=== PATIENT | male | born 1950 | race Caucasian/White ===

== ENCOUNTER 2017-04-18 14:28 | Inpatient (IN) ==
[2017-04-18] MEDS ORDERED: Acetaminophen 650 MG RECTAL SUPP RC ONE (14:39)
--- NOTE | 2017-04-18 14:45 | Emergency Department Note ---
Disposition Clinical Impression: Urinary retention, Confusion UTI (urinary tract infection) Qualifiers: Urinary tract infection type: acute cystitis Hematuria presence: without hematuria Qualified Code(s): N30.00 - Acute cystitis without hematuria Fever Qualifiers: Fever type: unspecified Qualified Code(s): R50.9 - Fever, unspecified Disposition: Admitted As Inpatient Condition: Fair Referrals: Andreea Hawley, RADIO ENGINEERING TEACHER [Primary Care Provider] - Forms: ED Satisfaction Letter Time of Disposition: 15:26 Altered Mental Status HPI - General Chief Complaint: ED Altered Mental Status Stated Complaint: AMS Time Seen by Provider: 04/18/17 14:34 Source: patient, EMS Mode of arrival: EMS Limitations: altered mental status Nursing Notes Reviewed: Yes Vital Signs Reviewed: Yes - History of Present Illness HPI Narrative: 67-year-old who arrives with altered mental status. Dominguez states that they found him sitting in a chair that he sits in every day doesn't get up to go the bathroom doesn't move. He's had increasing altered mental status family states it's usually an infection that causes this. Dominguez states that he lost his bladder when they stood him up and was very foul-smelling. On arrival here he is awake and we cannot get in to talk. Last known well according to dominguez is unknown. The patient is not able to provide any additional information they say families underway and. MD complaint: altered mental status Onset (ago): unknown Pain Severity: unable (To quantify) Consistency of Symptoms: getting worse Context: history of similar presentation (If infection) Associated symptoms: Reports: difficulty walking, incontinence - Related Data Home Medications Medication Instructions Recorded Confirmed Atorvastatin [Lipitor] 20 mg PO HS 04/30/16 04/30/16 BuPROPion [Wellbutrin] 100 mg PO HS 04/30/16 04/30/16 BuPROPion [Wellbutrin] 200 mg PO QIANA 04/30/16 04/30/16 Chloraseptic [place] [Chloraseptic] 1 spray MM QID 04/30/16 04/30/16 Digoxin [Lanoxin] 0.25 mg PO DAILY 04/30/16 04/30/16 Ergocalciferol (VITAMIN D2) 50,000 unit PO MO 04/30/16 04/30/16 [Vitamin D2] Gabapentin [Neurontin] 1,200 mg PO Q12HR 04/30/16 04/30/16 HYDROmorphone [Dilaudid] 2 mg PO Q3H PRN 04/30/16 04/30/16 HydrOXYzine 50 mg PO BID 04/30/16 04/30/16 Magic Mouthwash [Magic Mouthwash 10 ml PO QID PRN 04/30/16 04/30/16 BLM] Magnesium Oxide [Mag-Ox] 400 mg PO DAILY 04/30/16 04/30/16 Nystatin Cream [Mycostatin Cream] 1 / TP TID 04/30/16 04/30/16 Ondansetron [Zofran ODT] 8 mg SL Q8HR PRN 04/30/16 04/30/16 OxyCODONE Immed Rel [Roxicodone 15 15 mg PO Q4HR PRN 04/30/16 04/30/16 MG] Polyethylene Glycol 3350 [MiraLAX] 17 gm PO DAILY 04/30/16 04/30/16 Prochlorperazine Maleate 10 mg PO Q6HR 04/30/16 04/30/16 [Compazine] Rivaroxaban [Xarelto] 20 mg PO DAILY 04/30/16 04/30/16 Sennosides [Senna] 8.6 mg PO DAILY 04/30/16 04/30/16 Silver Sulfadiazine [Silvadene] 1 appl TP BID 04/30/16 04/30/16 Sodium Fluoride 1 ml 04/30/16 04/30/16 clonazePAM [Klonopin] 2 mg PO QID 04/30/16 04/30/16 metFORMIN [Glucophage] 1,000 mg PO BIDWM 04/30/16 04/30/16 traMADol [Ultram] 50 mg PO Q12HR PRN 04/30/16 04/30/16 Allergies Allergy/AdvReac Type Severity Reaction Status Date / Time No Known Allergies Allergy Unverified 01/01/16 08:26 All systems ED: reviewed and negative except as stated. Constitutional: Reports: fever. Denies: chills, weakness, weight change Eyes: Denies: eye pain, eye discharge, vision change ENT ED: Denies: ear pain, throat pain, dental pain, hearing loss, epistaxis, congestion, dysphagia Cardiovascular: Denies: chest pain, palpitations, dyspnea on exertion, edema, syncope Respiratory: Denies: cough, dyspnea, wheezes, hemoptysis, stridor Gastrointestinal: Denies: abdominal pain, nausea, vomiting, diarrhea, constipation, hematemesis, melena, hematochezia Genitourinary: Denies: urgency, dysuria, frequency, hematuria Musculoskeletal: Denies: back pain, neck pain, arthralgia, myalgia Integumentary: Denies: rash, abrasion, lesions Neurological: Reports: weakness (Lysed), confusion, other (All not speak). Denies: numbness, paresthesias, abnormal gait, vertigo Psychiatric: Denies: anxiety, depression, suicidal thoughts, homicidal thoughts , auditory hallucinations, visual hallucinations Endocrine: Reports: fatigue Hematological/Lymphatic: Denies: easy bleeding, easy bruising Allergic/Immunologic: Denies: facial swelling, urticaria Past Medical History - Past Medical History Medical history: Reports: atrial fibrillation, cancer (Patient has also has morbid obesity), diabetes, venous stasis - Social History Smoking Status: Former smoker Alcohol use: Reports: none Physical Exam - General Limitations: altered mental status General appearance: other (Awake and can get him to follow some instructions.) - Head Head exam: atraumatic, normocephalic, normal inspection - Eye Eye exam: Present: normal appearance, PERRL, EOMI - ENT ENT exam: normal exam, normal oropharynx, mucous membranes moist - Neck Neck exam: Present: normal inspection, full ROM, trachea midline - Chest Chest inspection: Present: normal inspection, symmetric chest wall rise - Respiratory Respiratory exam: Present: normal lung sounds bilaterally - Cardiovascular Cardiovascular exam: Present: regular rate, normal rhythm, normal heart sounds - Abdominal Exam Abdominal exam: Present: soft, Non-Tender. Absent: tenderness, distention, guarding, rebound, rigidity - Extremities Exam Extremities exam: Present: normal inspection, full ROM. Absent: tenderness, pedal edema - Expanded Lower Extremity Exam Neurovascular/Tendon exam: Present: normal capillary refill. Absent: pulse deficit - Back Exam Back exam: Present: normal inspection, full ROM. Absent: tenderness - Neurological Exam Neurological exam: Absent: motor sensory deficit - Skin Skin exam: Present: warm, dry, intact, normal color Course - Reevaluation(s) Reevaluation #1: Patient with increased confusion temperature of 104. White count is 19,000 lactate is normal urine shows evidence of infection. Patient given Rocephin. Vital signs are stable. A Rivera catheter placed with return of 900 mL. He will be admitted. Time: 15:25 - Consultations Consultation #1: Discussed with Dr. Ontiveros Time: 16:19 Vital Signs Temperature 99.1 F 04/18/17 14:30 Pulse Rate 93 04/18/17 14:30 Respiratory Rate 16 04/18/17 14:30 Blood Pressure 168/62 04/18/17 14:30 O2 Sat by Pulse Oximetry 94 04/18/17 14:30 Temperature 99.1 F 04/18/17 14:30 Pulse Rate 79 04/18/17 15:06 Respiratory Rate 16 04/18/17 15:06 Blood Pressure 136/68 04/18/17 15:06 O2 Sat by Pulse Oximetry 97 04/18/17 15:06 Oxygen Delivery Oxygen Delivery Nasal Cannula Altered Mental Status - Medical Records Medical records reviewed: Yes I reviewed the patient's medical records. - Lab Data Lab results reviewed: Yes I reviewed the patient's lab results. Result diagrams: 04/18/17 14:59 04/18/17 14:59 Lab Results 04/18/17 04/18/17 04/18/17 Range/Units 14:41 14:41 14:59 WBC 19.0 H (4.3-11.1) K/mcL RBC 4.19 (4.19-5.50) M/mcL Hgb 11.9 L (12.9-16.9) g/dL Hct 36.5 L (37.5-50.1) % MCV 87.1 (83.0-100.0) fL MCH 28.4 (28.0-33.3) pg MCHC 32.6 (31.6-35.5) g/dL RDW 13.5 (11.5-14.5) % Plt Count 218 (140-400) K/mcL MPV 8.6 L (9.4-12.4) fL Immature Gran % 0.6 (0-4) % Seg Neutrophils % 89.5 % Lymphocytes % 3.3 % Monocytes % 5.9 % Eosinophils % 0.3 % Basophils % 0.4 % Neutrophils # 17.0 H (1.6-8.9) K/mcL Lymphocytes # 0.6 (0.6-4.6) K/mcL Monocytes # 1.1 (0.0-1.3) K/mcL Eosinophils # 0.1 (0.0-0.6) K/mcL Basophils # 0.1 (0.0-0.2) K/mcL Immature Plt Fraction 1.0 L (1.1-6.1) % PT (9.4-12.1) Seconds INR APTT (26.0-36.0) Seconds Sodium (136-145) mEq/L Potassium (3.5-4.5) mEq/L Chloride (98-109) mEq/L Carbon Dioxide (19-29) mEq/L BUN (8-26) mg/dL Creatinine (0.72-1.25) mg/dL Est GFR ( Amer) (> 60) Est GFR (Non-Af Amer) (> 60) BUN/Creatinine Ratio (6-26) Glucose (70-99) mg/dL Calculated Osmolality (280-300) Lactic Acid (0.5-2.2) mmol/L Calcium (8.6-10.8) mg/dL Total Bilirubin (0.2-1.2) mg/dL Direct Bilirubin (0.0-0.5) mg/dL Indirect Bilirubin (0.0-1.2) mg/dL AST (5-34) Units/L ALT (0-55) Units/L Alkaline Phosphatase (38-126) Units/L Troponin I (0-0.03) ng/mL Serum Total Protein (6.0-8.3) g/dL Albumin (3.5-5.0) g/dL Globulin (2.4-3.5) g/dL Albumin/Globulin Ratio (1.1-2.2) Urine Color Yellow (Yellow) Urine Clarity Cloudy A (Clear) Urine pH 6.0 (5.0-8.0) pH Units Ur Specific [place] 1.017 (1.010-1.025) Urine Protein Trace (Neg-Trace) mg/dL Urine Glucose (UA) Normal (Normal) mg/dL Urine Ketones Negative (Negative) mg/dL Urine Blood Negative (Negative) Urine Nitrite Positive A (Negative) Urine Bilirubin Large H (Negative) Urine Urobilinogen Normal (Normal) mg/dL Ur Leukocyte Esterase Small H (Negative) Urine Microscopic RBC 0-3 (0-3) per hpf Urine Microscopic WBC 5-15 H (0-3) per hpf Ur Squamous Epith Cells Few (None-Few) per lpf Urine Bacteria Many H (None-Few) per hpf Hyaline Casts None Seen (None-Few) per lpf Ur Culture Indicated? YES A (NO) Urine Opiates Screen Negative (Cxysmp=543) ng/mL Ur Barbiturates Screen Negative (Hyiwtl=188) ng/mL Ur Phencyclidine Scrn Negative (Cutoff=25) ng/mL Ur Amphetamines Screen Negative (Ynlydi=4873) ng/mL U Benzodiazepines Scrn Positive H (Cezkfz=857) ng/mL Urine Cocaine Screen Negative (Cutoff= 300) ng/mL U Marijuana (THC) Screen Negative (Cutoff = 50) ng/mL Ethyl Alcohol (0-10) mg/dL 04/18/17 04/18/17 04/18/17 Range/Units 14:59 14:59 14:59 WBC (4.3-11.1) K/mcL RBC (4.19-5.50) M/mcL Hgb (12.9-16.9) g/dL Hct (37.5-50.1) % MCV (83.0-100.0) fL MCH (28.0-33.3) pg MCHC (31.6-35.5) g/dL RDW (11.5-14.5) % Plt Count (140-400) K/mcL MPV (9.4-12.4) fL Immature Gran % (0-4) % Seg Neutrophils % % Lymphocytes % % Monocytes % % Eosinophils % % Basophils % % Neutrophils # (1.6-8.9) K/mcL Lymphocytes # (0.6-4.6) K/mcL Monocytes # (0.0-1.3) K/mcL Eosinophils # (0.0-0.6) K/mcL Basophils # (0.0-0.2) K/mcL Immature Plt Fraction (1.1-6.1) % PT 13.1 H (9.4-12.1) Seconds INR 1.2 APTT 21.8 L (26.0-36.0) Seconds Sodium 137 (136-145) mEq/L Potassium 4.3 (3.5-4.5) mEq/L Chloride 106 (98-109) mEq/L Carbon Dioxide 23 (19-29) mEq/L BUN 20 (8-26) mg/dL Creatinine 1.03 (0.72-1.25) mg/dL Est GFR ( Amer) > 60 (> 60) Est GFR (Non-Af Amer) > 60 (> 60) BUN/Creatinine Ratio 19 (6-26) Glucose 216 H (70-99) mg/dL Calculated Osmolality 293 (280-300) Lactic Acid (0.5-2.2) mmol/L Calcium 8.8 (8.6-10.8) mg/dL Total Bilirubin 0.5 (0.2-1.2) mg/dL Direct Bilirubin 0.3 (0.0-0.5) mg/dL Indirect Bilirubin 0.2 (0.0-1.2) mg/dL AST 10 (5-34) Units/L ALT 16 (0-55) Units/L Alkaline Phosphatase 72 (38-126) Units/L Troponin I 0.00 (0-0.03) ng/mL Serum Total Protein 7.6 (6.0-8.3) g/dL Albumin 3.1 L (3.5-5.0) g/dL Globulin 4.5 H (2.4-3.5) g/dL Albumin/Globulin Ratio 0.7 L (1.1-2.2) Urine Color (Yellow) Urine Clarity (Clear) Urine pH (5.0-8.0) pH Units Ur Specific [place] (1.010-1.025) Urine Protein (Neg-Trace) mg/dL Urine Glucose (UA) (Normal) mg/dL Urine Ketones (Negative) mg/dL Urine Blood (Negative) Urine Nitrite (Negative) Urine Bilirubin (Negative) Urine Urobilinogen (Normal) mg/dL Ur Leukocyte Esterase (Negative) Urine Microscopic RBC (0-3) per hpf Urine Microscopic WBC (0-3) per hpf Ur Squamous Epith Cells (None-Few) per lpf Urine Bacteria (None-Few) per hpf Hyaline Casts (None-Few) per lpf Ur Culture Indicated? (NO) Urine Opiates Screen (Xbfqvb=580) ng/mL Ur Barbiturates Screen (Czxpmi=264) ng/mL Ur Phencyclidine Scrn (Cutoff=25) ng/mL Ur Amphetamines Screen (Cvhqsq=5870) ng/mL U Benzodiazepines Scrn (Fwnlcf=950) ng/mL Urine Cocaine Screen (Cutoff= 300) ng/mL U Marijuana (THC) Screen (Cutoff = 50) ng/mL Ethyl Alcohol < 10 (0-10) mg/dL 04/18/17 Range/Units 14:59 WBC (4.3-11.1) K/mcL RBC (4.19-5.50) M/mcL Hgb (12.9-16.9) g/dL Hct (37.5-50.1) % MCV (83.0-100.0) fL MCH (28.0-33.3) pg MCHC (31.6-35.5) g/dL RDW (11.5-14.5) % Plt Count (140-400) K/mcL MPV (9.4-12.4) fL Immature Gran % (0-4) % Seg Neutrophils % % Lymphocytes % % Monocytes % % Eosinophils % % Basophils % % Neutrophils # (1.6-8.9) K/mcL Lymphocytes # (0.6-4.6) K/mcL Monocytes # (0.0-1.3) K/mcL Eosinophils # (0.0-0.6) K/mcL Basophils # (0.0-0.2) K/mcL Immature Plt Fraction (1.1-6.1) % PT (9.4-12.1) Seconds INR APTT (26.0-36.0) Seconds Sodium (136-145) mEq/L Potassium (3.5-4.5) mEq/L Chloride (98-109) mEq/L Carbon Dioxide (19-29) mEq/L BUN (8-26) mg/dL Creatinine (0.72-1.25) mg/dL Est GFR ( Amer) (> 60) Est GFR (Non-Af Amer) (> 60) BUN/Creatinine Ratio (6-26) Glucose (70-99) mg/dL Calculated Osmolality (280-300) Lactic Acid 2.0 (0.5-2.2) mmol/L Calcium (8.6-10.8) mg/dL Total Bilirubin (0.2-1.2) mg/dL Direct Bilirubin (0.0-0.5) mg/dL Indirect Bilirubin (0.0-1.2) mg/dL AST (5-34) Units/L ALT (0-55) Units/L Alkaline Phosphatase (38-126) Units/L Troponin I (0-0.03) ng/mL Serum Total Protein (6.0-8.3) g/dL Albumin (3.5-5.0) g/dL Globulin (2.4-3.5) g/dL Albumin/Globulin Ratio (1.1-2.2) Urine Color (Yellow) Urine Clarity (Clear) Urine pH (5.0-8.0) pH Units Ur Specific [place] (1.010-1.025) Urine Protein (Neg-Trace) mg/dL Urine Glucose (UA) (Normal) mg/dL Urine Ketones (Negative) mg/dL Urine Blood (Negative) Urine Nitrite (Negative) Urine Bilirubin (Negative) Urine Urobilinogen (Normal) mg/dL Ur Leukocyte Esterase (Negative) Urine Microscopic RBC (0-3) per hpf Urine Microscopic WBC (0-3) per hpf Ur Squamous Epith Cells (None-Few) per lpf Urine Bacteria (None-Few) per hpf Hyaline Casts (None-Few) per lpf Ur Culture Indicated? (NO) Urine Opiates Screen (Ysfmkl=515) ng/mL Ur Barbiturates Screen (Vgajgt=821) ng/mL Ur Phencyclidine Scrn (Cutoff=25) ng/mL Ur Amphetamines Screen (Ieiozt=2782) ng/mL U Benzodiazepines Scrn (Nvdvty=058) ng/mL Urine Cocaine Screen (Cutoff= 300) ng/mL U Marijuana (THC) Screen (Cutoff = 50) ng/mL Ethyl Alcohol (0-10) mg/dL - Radiology Data Radiology results reviewed: Yes I reviewed the patient's radiology results. Chest X-Ray 04/18/17 14:36 IMPRESSION: Stable portable study. D/ / Keila Bai Cha, MD / Keila Bai Cha, MD Interpreting Provider: Keila Bai Cha, MD - EKG Data EKG attestation: Yes I reviewed and interpreted this EKG. Rate: normal Rhythm: A.Fib When compared to previous EKG there are: no significant changes (11/16/2014) Interpretation: no acute changes TPA Checklist - LKW: 3-4.5 hrs Add. Warnings/Precautions Patient/family understanding: The patient/family members have been counseled and understood the risk, benefit , and alternatives of treatment.
[2017-04-18 14:47] LABS: Bilirubin,Urine Large (Negative); Blood,Urine Negative (Negative); Clarity,Urine Cloudy (Clear); Color,Urine Yellow (Yellow); Glucose,Urine (UA) Normal (Normal); Ketones,Urine Negative (Negative); Leukocyte Esterase,Urine Small (Negative); Nitrite,Urine Positive (Negative); Protein,Urine Trace mg/dL (Neg-Trace); Specific Gravity,Urine 1.017 (1.010-1.025); Urobilinogen,Urine Normal (Normal)
[2017-04-18 14:50] LABS: Bacteria,Urine Many per hpf (None-Few); Hyaline Casts,Urine None Seen per lpf (None-Few); RBC,Urine 0-3 per hpf (0-3); Squamous Epithelial Cell,Urine Few per lpf (None-Few)
[2017-04-18 14:56] LABS: Amphetamine Screen,Urine Negative ng/mL (Cutoff=1000); Barbiturate Screen,Urine Negative ng/mL (Cutoff=200); Benzodiazepines Screen,Urine Positive ng/mL (Cutoff=200); Cannabinoid Screen,Urine Negative ng/mL (Cutoff = 50); Cocaine Screen,Urine Negative ng/mL (Cutoff= 300); Opiate Screen,Urine Negative ng/mL (Cutoff=300); Phencyclidine Screen,Urine Negative ng/mL (Cutoff=25)
[2017-04-18 15:07] LABS: Basophils # 0.1 K/mcL (0.0-0.2); Basophils % 0.4 %; Eosinophils # 0.1 K/mcL (0.0-0.6); Eosinophils % 0.3 %; Hematocrit 36.5 % (37.5-50.1); Hemoglobin 11.9 g/dL (12.9-16.9); Immature Granulocytes % 0.6 % (0-4); Lymphocytes # 0.6 K/mcL (0.6-4.6); Lymphocytes % 3.3 %; Mean Corpuscular HGB Conc 32.6 g/dL (31.6-35.5); Mean Corpuscular Hemoglobin 28.4 pg (28.0-33.3); Mean Corpuscular Volume 87.1 fL (83.0-100.0); Mean Platelet Volume 8.6 fL (9.4-12.4); Monocytes # 1.1 K/mcL (0.0-1.3); Monocytes % 5.9 %; Platelet Count 218 K/mcL (140-400); Red Blood Count 4.19 M/mcL (4.19-5.50); Red Cell Distribution Width 13.5 % (11.5-14.5); Segmented Neutrophils % 89.5 %
[2017-04-18 15:12] LABS: INR 1.2; Prothrombin Time 13.1 Seconds (9.4-12.1)
[2017-04-18 15:14] LABS: Activated Partial Thrombo Time 21.8 Seconds (26.0-36.0)
[2017-04-18 15:21] LABS: Alanine Aminotransferase 16 Units/L (0-55); Albumin 3.1 g/dL (3.5-5.0); Albumin/Globulin Ratio 0.7 (1.1-2.2); Alkaline Phosphatase 72 Units/L (38-126); Aspartate Amino Transferase 10 Units/L (5-34); BUN/Creatinine Ratio 19 (6-26); Bilirubin,Direct 0.3 mg/dL (0.0-0.5); Bilirubin,Indirect 0.2 mg/dL (0.0-1.2); Bilirubin,Total 0.5 mg/dL (0.2-1.2); Blood Urea Nitrogen 20 mg/dL (8-26); Calcium 8.8 mg/dL (8.6-10.8); Carbon Dioxide 23 mEq/L (19-29); Chloride 106 mEq/L (98-109); Ethanol < 10 mg/dL (0-10); Globulin 4.5 g/dL (2.4-3.5); Glucose 216 mg/dL (70-99); Osmolality,Calculated 293 (280-300); Potassium 4.3 mEq/L (3.5-4.5); Sodium 137 mEq/L (136-145); Total Protein 7.6 g/dL (6.0-8.3); eGFR For African Americans > 60 (> 60); eGFR For Non-African Americans > 60 (> 60)
[2017-04-18] MEDS ORDERED: Naloxone 0.4 MG/ML INJ IVP PRN (16:49)
[2017-04-18] MEDS ORDERED: Acetaminophen 325 MG TABLET PO PRN (16:49)
[2017-04-18] MEDS ORDERED: 0.9 % Sodium Chloride 500 ML IVC ONE (17:04)
[2017-04-18] MEDS ORDERED: Dextrose Gel 15 GM PO PRN ×2 (17:05)
[2017-04-18] MEDS ORDERED: *HR* Dextrose 50 % in Water (Syg) 50 ML SYRINGE IVP PRN (17:05)
[2017-04-18] MEDS ORDERED: D5% in Water 1,000 ML IVC PRN (17:05)
--- NOTE | 2017-04-18 17:16 | Internal Med History&Physical ---
<Leidy Echavarria - Last Filed: 04/18/17 17:53> Date of Encounter: 04/18/17 Time of Encounter: 17:06 Assessment and Plan (1) Sepsis Current visit: Yes Status: Acute Patient has UTI, fever of 104, WBC count of 19.0, tachycardia with HR in the 90s , meeting sepsis criteria. Blood cultures and urine cultures sent initial lactate 2.0, will recheck. Will give 500mL fluid bolus followed by 0.9NS at 100mL/hr Patient started on ceftriaxone in ED, will switch to Cefepime. Qualifiers: Sepsis type: sepsis due to unspecified organism Qualified Code(s): A41.9 - Sepsis, unspecified organism (2) UTI (urinary tract infection) Current visit: Yes Status: Acute Patient with AMS, found to have UTI on Urinalysis. Urine culture and blood culture sent. IV fluids 0.9NS at 100mL/hr. Cefepime 2g IVPB BID. Qualifiers: Urinary tract infection type: acute cystitis Hematuria presence: without hematuria Qualified Code(s): N30.00 - Acute cystitis without hematuria (3) Type 2 diabetes mellitus Current visit: Yes Status: Acute Well controlled as evidenced by recent Hgb A1c of 6.3% Hold metformin check blood sugars qhr sliding scale correction dose q6hr hypoglycemic protocol. Qualifiers: Diabetes mellitus complication status: with unspecified complications Diabetes mellitus longterm insulin use: without termite technician use Qualified Code( s): E11.8 - Type 2 diabetes mellitus with unspecified complications (4) Afib Current visit: Yes Status: Acute Patient has history of afib, on digoxin for rhythm control and xarelto for anti- coagulation. Continue home doses of medications. Qualifiers: Atrial fibrillation type: chronic Qualified Code(s): I48.2 - Chronic atrial fibrillation (5) Encephalopathy due to infection Current visit: Yes Status: Acute Patient unable to answer questions appropriately, is only oriented x 2. He has UTI and sepsis and mental status change likely secondary to infection. Treating infection and will monitor for improvement. (6) Fungal rash of trunk Current visit: Yes Status: Acute Patient with erythema and excoriation in skin folds under panus consistent with fungal rash. Nystatin powder BID. Wound team consulted for further recommendations. (7) DVT prophylaxis Current visit: Yes Status: Acute anti-embolic stockings Patient on Xarelto for afib, additional pharmacologic prophylaxis not warranted. Internal Medicine - H&P: HPI Chief complaint: AMS Admitted From: Emergency Dept Plans for Post Hospital Care: Home History of present illness: Mr. Piedra is a 67 year old male with HTN, HLD, type 2 diabetes, arthritis, afib on xarelto, history of tonsillar cancer s/p treatment presented to ED today with reports of mental status change. Patient's reports she came home from [place] today and the patient was unable to respond to questions and seemed very "out of it". She reports he spends most of his time in his recliner , as he sleeps in it and is not very active. She woke him up this morning and she reports he seemed drowsy at that time, but did not think much of it until she returned from [place]. Patient is slow to respond to questions and unable to obtain full review of systems, but he does deny pain at this time. Evaluation in the ED included a CT o the head which showed no acute intracranial abnormality. UA was positive for UTI, WBC was elevated to 19.0. He was febrile with initial rectal temp of 104. Lactate was borderline at 2.0. He was hyperglycemic with blood sugar of 216. CXR was stable portable study and ekg showed afib with no changes from previous. Blood cultures and urine cultures were sent and patient was given rectal tylenol and Ceftriaxone. On exam, patient alert and oriented x 2, slow to respond to questions. Heart had irregular rhythm with normal rate. Lungs were clear bilaterally. Abdomen was soft, non-tender with erythema in folds of panus. No peripheral edema, peripheral pulses intact. Past Med Surg Social Fam HX - Past Medical History Medical history: arthritis, atrial fibrillation, cancer (tonsillar cancer), diabetes, hyperlipidemia, hypertension, venous stasis Psychiatric history: no psych history - Past Surgical History Surgical History: knee replacement - Social History Smoking Status: Former smoker Alcohol use: none - Family History Father Living Status: Age at : 65 Hx Family Cardiac Disorders: Yes Internal Medicine - H&P: Meds Atorvastatin [Lipitor] 20 mg PO HS 04/30/16 [History] BuPROPion [Wellbutrin] 100 mg PO HS 04/30/16 [History] BuPROPion [Wellbutrin] 200 mg PO QIANA 04/30/16 [History] Chloraseptic [place] [Chloraseptic] 1 spray MM QID 04/30/16 [History] Digoxin [Lanoxin] 0.25 mg PO DAILY 04/30/16 [History] Ergocalciferol (VITAMIN D2) [Vitamin D2] 50,000 unit PO MO 04/30/16 [History] Gabapentin [Neurontin] 1,200 mg PO Q12HR 04/30/16 [History] HYDROmorphone [Dilaudid] 2 mg PO Q3H PRN 04/30/16 [History] HydrOXYzine 50 mg PO BID 04/30/16 [History] Magic Mouthwash [Magic Mouthwash BLM] 10 ml PO QID PRN 04/30/16 [History] Magnesium Oxide [Mag-Ox] 400 mg PO DAILY 04/30/16 [History] Nystatin Cream [Mycostatin Cream] 1 / TP TID 04/30/16 [History] Ondansetron [Zofran ODT] 8 mg SL Q8HR PRN 04/30/16 [History] OxyCODONE Immed Rel [Roxicodone 15 MG] 15 mg PO Q4HR PRN 04/30/16 [History] Polyethylene Glycol 3350 [MiraLAX] 17 gm PO DAILY 04/30/16 [History] Prochlorperazine Maleate [Compazine] 10 mg PO Q6HR 04/30/16 [History] Rivaroxaban [Xarelto] 20 mg PO DAILY 04/30/16 [History] Sennosides [Senna] 8.6 mg PO DAILY 04/30/16 [History] Silver Sulfadiazine [Silvadene] 1 appl TP BID 04/30/16 [History] Sodium Fluoride 1 ml 04/30/16 [History] clonazePAM [Klonopin] 2 mg PO QID 04/30/16 [History] metFORMIN [Glucophage] 1,000 mg PO BIDWM 04/30/16 [History] traMADol [Ultram] 50 mg PO Q12HR PRN 04/30/16 [History] 3 Allergy/AdvReac Type Severity Reaction Status Date / Time No Known Allergies Allergy Unverified 01/01/16 08:26 ROS unobtainable: due to mental status All Systems PM: A 10-system review of systems was performed and is negative for pertinent findings except as documented above in the HPI. - Constitutional Vitals: Temp Pulse Resp BP Pulse Ox 102.3 F H 83 16 120/73 96 04/18/17 16:35 04/18/17 16:20 04/18/17 16:20 04/18/17 16:20 04/18/17 16:20 General appearance: Present: A&O X 2, pleasant, no acute distress. Absent: answers questions appropriately Exam: somnolent - Head Head exam: Present: atraumatic, normocephalic - Eye Eye exam: Present: PERRL, conjuntiva pink, sclera anicteric Pupils: Present: PERRL - Neck Neck exam general surgery: Present: supple, trachea midline. Absent: lymphadenopathy - Respiratory Respiratory exam: Present: CTAB. Absent: accessory muscle use, rales, rhonchi, wheezes - Cardiovascular Cardiovascular exam: Present: RRR, +S1, +S2. Absent: diastolic murmur, gallop, rubs, systolic murmur - GI/Abdominal GI/Abdominal exam: Present: normal bowel sounds, soft, no peritoneal signs. Absent: distended, tenderness - Extremities Exam Extremities exam: Present: warm, radial pulses palpable and symmetrical. Absent : calf tenderness, cyanotic, pedal edema - Neurological Exam Neurological exam: Present: altered, CN II-XII intact, no focal deficits. Absent: facial droop, speech deficit - Expanded Neurological Exam Patient oriented to: Present: person, place - Skin Skin exam: Present: erythema (rash in folds of panus), intact Internal Med - H&P Results - Labs CBC & Chem 7: 04/18/17 14:59 04/18/17 14:59 Labs: All Lab Results (24 Hours) 04/18/17 04/18/17 04/18/17 Range/Units 14:41 14:41 14:59 WBC 19.0 H (4.3-11.1) K/mcL RBC 4.19 (4.19-5.50) M/mcL Hgb 11.9 L (12.9-16.9) g/dL Hct 36.5 L (37.5-50.1) % MCV 87.1 (83.0-100.0) fL MCH 28.4 (28.0-33.3) pg MCHC 32.6 (31.6-35.5) g/dL RDW 13.5 (11.5-14.5) % Plt Count 218 (140-400) K/mcL MPV 8.6 L (9.4-12.4) fL Immature Gran % 0.6 (0-4) % Seg Neutrophils % 89.5 % Lymphocytes % 3.3 % Monocytes % 5.9 % Eosinophils % 0.3 % Basophils % 0.4 % Neutrophils # 17.0 H (1.6-8.9) K/mcL Lymphocytes # 0.6 (0.6-4.6) K/mcL Monocytes # 1.1 (0.0-1.3) K/mcL Eosinophils # 0.1 (0.0-0.6) K/mcL Basophils # 0.1 (0.0-0.2) K/mcL Immature Plt Fraction 1.0 L (1.1-6.1) % PT (9.4-12.1) Seconds INR APTT (26.0-36.0) Seconds Sodium (136-145) mEq/L Potassium (3.5-4.5) mEq/L Chloride (98-109) mEq/L Carbon Dioxide (19-29) mEq/L BUN (8-26) mg/dL Creatinine (0.72-1.25) mg/dL Est GFR ( Amer) (> 60) Est GFR (Non-Af Amer) (> 60) BUN/Creatinine Ratio (6-26) Glucose (70-99) mg/dL Calculated Osmolality (280-300) Lactic Acid (0.5-2.2) mmol/L Calcium (8.6-10.8) mg/dL Total Bilirubin (0.2-1.2) mg/dL Direct Bilirubin (0.0-0.5) mg/dL Indirect Bilirubin (0.0-1.2) mg/dL AST (5-34) Units/L ALT (0-55) Units/L Alkaline Phosphatase (38-126) Units/L Troponin I (0-0.03) ng/mL Serum Total Protein (6.0-8.3) g/dL Albumin (3.5-5.0) g/dL Globulin (2.4-3.5) g/dL Albumin/Globulin Ratio (1.1-2.2) Urine Color Yellow (Yellow) Urine Clarity Cloudy A (Clear) Urine pH 6.0 (5.0-8.0) pH Units Ur Specific [place] 1.017 (1.010-1.025) Urine Protein Trace (Neg-Trace) mg/dL Urine Glucose (UA) Normal (Normal) mg/dL Urine Ketones Negative (Negative) mg/dL Urine Blood Negative (Negative) Urine Nitrite Positive A (Negative) Urine Bilirubin Large H (Negative) Urine Urobilinogen Normal (Normal) mg/dL Ur Leukocyte Esterase Small H (Negative) Urine Microscopic RBC 0-3 (0-3) per hpf Urine Microscopic WBC 5-15 H (0-3) per hpf Ur Squamous Epith Cells Few (None-Few) per lpf Urine Bacteria Many H (None-Few) per hpf Hyaline Casts None Seen (None-Few) per lpf Ur Culture Indicated? YES A (NO) Urine Opiates Screen Negative (Drabjv=338) ng/mL Ur Barbiturates Screen Negative (Wcguvo=306) ng/mL Ur Phencyclidine Scrn Negative (Cutoff=25) ng/mL Ur Amphetamines Screen Negative (Cuqpmn=4238) ng/mL U Benzodiazepines Scrn Positive H (Gobehi=804) ng/mL Urine Cocaine Screen Negative (Cutoff= 300) ng/mL U Marijuana (THC) Screen Negative (Cutoff = 50) ng/mL Ethyl Alcohol (0-10) mg/dL 04/18/17 04/18/17 04/18/17 Range/Units 14:59 14:59 14:59 WBC (4.3-11.1) K/mcL RBC (4.19-5.50) M/mcL Hgb (12.9-16.9) g/dL Hct (37.5-50.1) % MCV (83.0-100.0) fL MCH (28.0-33.3) pg MCHC (31.6-35.5) g/dL RDW (11.5-14.5) % Plt Count (140-400) K/mcL MPV (9.4-12.4) fL Immature Gran % (0-4) % Seg Neutrophils % % Lymphocytes % % Monocytes % % Eosinophils % % Basophils % % Neutrophils # (1.6-8.9) K/mcL Lymphocytes # (0.6-4.6) K/mcL Monocytes # (0.0-1.3) K/mcL Eosinophils # (0.0-0.6) K/mcL Basophils # (0.0-0.2) K/mcL Immature Plt Fraction (1.1-6.1) % PT 13.1 H (9.4-12.1) Seconds INR 1.2 APTT 21.8 L (26.0-36.0) Seconds Sodium 137 (136-145) mEq/L Potassium 4.3 (3.5-4.5) mEq/L Chloride 106 (98-109) mEq/L Carbon Dioxide 23 (19-29) mEq/L BUN 20 (8-26) mg/dL Creatinine 1.03 (0.72-1.25) mg/dL Est GFR ( Amer) > 60 (> 60) Est GFR (Non-Af Amer) > 60 (> 60) BUN/Creatinine Ratio 19 (6-26) Glucose 216 H (70-99) mg/dL Calculated Osmolality 293 (280-300) Lactic Acid (0.5-2.2) mmol/L Calcium 8.8 (8.6-10.8) mg/dL Total Bilirubin 0.5 (0.2-1.2) mg/dL Direct Bilirubin 0.3 (0.0-0.5) mg/dL Indirect Bilirubin 0.2 (0.0-1.2) mg/dL AST 10 (5-34) Units/L ALT 16 (0-55) Units/L Alkaline Phosphatase 72 (38-126) Units/L Troponin I 0.00 (0-0.03) ng/mL Serum Total Protein 7.6 (6.0-8.3) g/dL Albumin 3.1 L (3.5-5.0) g/dL Globulin 4.5 H (2.4-3.5) g/dL Albumin/Globulin Ratio 0.7 L (1.1-2.2) Urine Color (Yellow) Urine Clarity (Clear) Urine pH (5.0-8.0) pH Units Ur Specific [place] (1.010-1.025) Urine Protein (Neg-Trace) mg/dL Urine Glucose (UA) (Normal) mg/dL Urine Ketones (Negative) mg/dL Urine Blood (Negative) Urine Nitrite (Negative) Urine Bilirubin (Negative) Urine Urobilinogen (Normal) mg/dL Ur Leukocyte Esterase (Negative) Urine Microscopic RBC (0-3) per hpf Urine Microscopic WBC (0-3) per hpf Ur Squamous Epith Cells (None-Few) per lpf Urine Bacteria (None-Few) per hpf Hyaline Casts (None-Few) per lpf Ur Culture Indicated? (NO) Urine Opiates Screen (Oghdnl=985) ng/mL Ur Barbiturates Screen (Pmbkso=363) ng/mL Ur Phencyclidine Scrn (Cutoff=25) ng/mL Ur Amphetamines Screen (Nldrmt=0253) ng/mL U Benzodiazepines Scrn (Hehaxp=192) ng/mL Urine Cocaine Screen (Cutoff= 300) ng/mL U Marijuana (THC) Screen (Cutoff = 50) ng/mL Ethyl Alcohol < 10 (0-10) mg/dL 04/18/17 Range/Units 14:59 WBC (4.3-11.1) K/mcL RBC (4.19-5.50) M/mcL Hgb (12.9-16.9) g/dL Hct (37.5-50.1) % MCV (83.0-100.0) fL MCH (28.0-33.3) pg MCHC (31.6-35.5) g/dL RDW (11.5-14.5) % Plt Count (140-400) K/mcL MPV (9.4-12.4) fL Immature Gran % (0-4) % Seg Neutrophils % % Lymphocytes % % Monocytes % % Eosinophils % % Basophils % % Neutrophils # (1.6-8.9) K/mcL Lymphocytes # (0.6-4.6) K/mcL Monocytes # (0.0-1.3) K/mcL Eosinophils # (0.0-0.6) K/mcL Basophils # (0.0-0.2) K/mcL Immature Plt Fraction (1.1-6.1) % PT (9.4-12.1) Seconds INR APTT (26.0-36.0) Seconds Sodium (136-145) mEq/L Potassium (3.5-4.5) mEq/L Chloride (98-109) mEq/L Carbon Dioxide (19-29) mEq/L BUN (8-26) mg/dL Creatinine (0.72-1.25) mg/dL Est GFR ( Amer) (> 60) Est GFR (Non-Af Amer) (> 60) BUN/Creatinine Ratio (6-26) Glucose (70-99) mg/dL Calculated Osmolality (280-300) Lactic Acid 2.0 (0.5-2.2) mmol/L Calcium (8.6-10.8) mg/dL Total Bilirubin (0.2-1.2) mg/dL Direct Bilirubin (0.0-0.5) mg/dL Indirect Bilirubin (0.0-1.2) mg/dL AST (5-34) Units/L ALT (0-55) Units/L Alkaline Phosphatase (38-126) Units/L Troponin I (0-0.03) ng/mL Serum Total Protein (6.0-8.3) g/dL Albumin (3.5-5.0) g/dL Globulin (2.4-3.5) g/dL Albumin/Globulin Ratio (1.1-2.2) Urine Color (Yellow) Urine Clarity (Clear) Urine pH (5.0-8.0) pH Units Ur Specific [place] (1.010-1.025) Urine Protein (Neg-Trace) mg/dL Urine Glucose (UA) (Normal) mg/dL Urine Ketones (Negative) mg/dL Urine Blood (Negative) Urine Nitrite (Negative) Urine Bilirubin (Negative) Urine Urobilinogen (Normal) mg/dL Ur Leukocyte Esterase (Negative) Urine Microscopic RBC (0-3) per hpf Urine Microscopic WBC (0-3) per hpf Ur Squamous Epith Cells (None-Few) per lpf Urine Bacteria (None-Few) per hpf Hyaline Casts (None-Few) per lpf Ur Culture Indicated? (NO) Urine Opiates Screen (Cnykpf=309) ng/mL Ur Barbiturates Screen (Eddqjr=095) ng/mL Ur Phencyclidine Scrn (Cutoff=25) ng/mL Ur Amphetamines Screen (Oplnkn=8687) ng/mL U Benzodiazepines Scrn (Socydr=168) ng/mL Urine Cocaine Screen (Cutoff= 300) ng/mL U Marijuana (THC) Screen (Cutoff = 50) ng/mL Ethyl Alcohol (0-10) mg/dL - Diagnostic Studies Chest x-ray Additional comments: Chest X-Ray 04/18/17 14:36 IMPRESSION: Stable portable study. D/ / Keila Bai Cha, MD / Keila Bai Cha, MD Interpreting Provider: Keila Bai Cha, MD CT scan - head Additional comments: Head CT 04/18/17 14:37 IMPRESSION: No acute intracranial abnormality. D/ / Rolo Amaral MD / Rolo Amaral MD Interpreting Provider: Rolo Amaral MD <Willam Ontiveros - Last Filed: 04/18/17 18:01> Date of Encounter: 04/18/17 Internal Medicine - H&P: HPI History of present illness: Mr. Piedra is a 67 year old male All Systems PM: A 10-system review of systems was performed and is negative for pertinent findings except as documented above in the HPI. - Constitutional Vitals: Temp Pulse Resp BP Pulse Ox 97.9 F 93 14 110/66 95 04/18/17 17:14 04/18/17 17:14 04/18/17 17:14 04/18/17 17:14 04/18/17 17:14 Internal Med - H&P Results - Labs CBC & Chem 7: 04/18/17 14:59 04/18/17 14:59 - Attending Attestation I have personally performed a face to face evaluation on this patient. I have reviewed and agree with the care plan. History and Exam by me shows: Mr Piedra is a 67 yo who presents with one-day history of acute mental status change - to be secondary to UTI, urosepsis. He lives at home with his but stays in a recliner chair for most days and is minimally ambulatory at baseline - therefore, he has early-stage decubitus ulcer. She presented to be mentally baseline yesterday. However, developed decrease mental status this morning with altered behaviour. Increased lethargy. Urine reported to have a strong smell. Also noted of incomplete bladder empyting, frequency. No flank/suprapubic pain. On review his notes of bilateral knee replacement. Reports that the last time he was like this, he had a knee infection ROS 14 point review of systems reviewed as best as possible given presentation. Pertinent positive or negative as per HPI or otherwise reviewed as negative General - AAO x 3 Psych - Appropriate affect/speech. No agitation Eyes - FERNANDO. Eye lids intact. No scleral icterus Heart - Sinus. RRR. S1 and S2 present. No added HS/murmurs appreciated. No elevated JVD appreciated. Lung - Adequate air entry b/l, No crackles/wheezes appreciated GI - Soft, non-tender. No hepatosplenomegaly/ascites. BS+ - No CVA/suprapubic tenderness or palpable bladder distension Skin - Intact. No rash/petechiae/ecchymosis. Warm extremities Assessment and plan UTI Early sepsis - IV fluid, IV antibiotics - blood cx and urine cx pending - further management pending hospital course
[2017-04-18] MEDS: Insulin LISPRO 300 UNITS/3 ML VIAL SQ SCH (18:13)
[2017-04-18] MEDS: 0.9 % Sodium Chloride 1,000 ML IVC SCH ×2 (18:13→23:59)
[2017-04-18] MEDS: Nystatin POWDER 30 GM BOTTLE TP SCH (20:59)
[2017-04-18] MEDS ORDERED: *HR* OxyCODONE Immed Rel 15 MG TABLET PO PRN (21:13)
[2017-04-19] MEDS: Acetaminophen 650 MG RECTAL SUPP RC PRN ×2 (00:57→08:25)
[2017-04-19] MEDS: Insulin LISPRO 300 UNITS/3 ML VIAL SQ SCH ×5 (01:08→21:52)
[2017-04-19 05:10] LABS: Basophils # 0.1 K/mcL (0.0-0.2); Basophils % 0.3 %; Eosinophils % 0.1 %; Hematocrit 34.8 % (37.5-50.1); Hemoglobin 11.5 g/dL (12.9-16.9); Immature Granulocytes % 0.5 % (0-4); Lymphocytes # 1.2 K/mcL (0.6-4.6); Lymphocytes % 6.4 %; Mean Corpuscular Hemoglobin 29.1 pg (28.0-33.3); Mean Corpuscular Volume 88.1 fL (83.0-100.0); Mean Platelet Volume 8.6 fL (9.4-12.4); Monocytes # 1.6 K/mcL (0.0-1.3); Monocytes % 8.8 %; Neutrophils # 15.5 K/mcL (1.6-8.9); Platelet Count 166 K/mcL (140-400); Red Blood Count 3.95 M/mcL (4.19-5.50); Red Cell Distribution Width 13.7 % (11.5-14.5); Segmented Neutrophils % 83.9 %
[2017-04-19 05:53] LABS: BUN/Creatinine Ratio 19 (6-26); Blood Urea Nitrogen 17 mg/dL (8-26); Calcium 8.6 mg/dL (8.6-10.8); Carbon Dioxide 23 mEq/L (19-29); Chloride 108 mEq/L (98-109); Glucose 138 mg/dL (70-99); Osmolality,Calculated 290 (280-300); Potassium 4.1 mEq/L (3.5-4.5); Sodium 138 mEq/L (136-145); eGFR For African Americans > 60 (> 60); eGFR For Non-African Americans > 60 (> 60)
[2017-04-19] MEDS ORDERED: Cefepime HCl 2,000 MG in D5% in Water (Mini-Bag+) 100 ML IVPB SCH (06:00)
[2017-04-19] MEDS: Nystatin POWDER 30 GM BOTTLE TP SCH ×2 (08:24→21:51)
[2017-04-19] MEDS: *HR* Rivaroxaban 10 MG TABLET PO SCH (08:34)
[2017-04-19] MEDS: clonazePAM 1 MG TABLET PO SCH ×5 (08:34→21:47)
[2017-04-19] MEDS: hydrOXYzine pamoate 25 MG CAPSULE PO SCH ×2 (08:34→21:46)
[2017-04-19] MEDS: *HR* Digoxin 0.25 MG TABLET PO SCH (08:34)
[2017-04-19] MEDS: ALISKIREN 150 MG PO SCH (08:34)
[2017-04-19] MEDS: Fenofibrate 54 MG TABLET PO SCH (08:34)
[2017-04-19] MEDS: Gabapentin 300 MG CAPSULE PO SCH ×2 (08:34→21:47)
--- NOTE | 2017-04-19 12:27 | Internal Med Progress Note ---
Date of Encounter: 04/19/17 Time of Encounter: 11:30 - Assessment and plan (1) Severe sepsis Current Visit: Yes Status: Acute Assessment and plan: Patient presents with fever, tachycardia, leukocytosis and altered mental status , likely due to UTI. Continue IV antibiotics as below, f/up cultures. Lactic acid noted to be normal. (2) UTI (urinary tract infection) Current Visit: Yes Status: Acute Assessment and plan: UA suggestive of UTI and preliminary urine culture grows E.coli; continue IV Cefepime and f/up final sensitivities. Qualifiers: Urinary tract infection type: acute cystitis Hematuria presence: without hematuria Qualified Code(s): N30.00 - Acute cystitis without hematuria (3) Candidal dermatitis Current Visit: Yes Status: Chronic Assessment and plan: continue topical therapy with Nystatin powder PRN; (4) Afib Current Visit: Yes Status: Chronic Assessment and plan: currently rate-controlled; continue rate control home meds and anticoagulation with Xarelto. Qualifiers: Atrial fibrillation type: chronic Qualified Code(s): I48.2 - Chronic atrial fibrillation (5) Type 2 diabetes mellitus Current Visit: Yes Status: Chronic Assessment and plan: continue Accucheck blood glucose monitoring with SSI as needed; patient cleared bedside swallow evaluation, however reports he does not feel like eating yet. Diabetic diet as tolerated. Qualifiers: Diabetes mellitus complication status: with unspecified complications Diabetes mellitus mcc insulin use: without terminal gauger use Qualified Code( s): E11.8 - Type 2 diabetes mellitus with unspecified complications (6) Tonsillar cancer Current Visit: Yes Status: Chronic - Subjective Interval history: Able to tell me his name and that he is in some hospital, but unable to provide history. Denies abdominal pain, nausea, vomiting; pending bedside swallow evaluation , per nursing staff, has been drowsy and altered since admission. - Constitutional Vitals: Temp Pulse Resp BP Pulse Ox 98 F 76 16 148/65 97 04/19/17 11:22 04/19/17 11:22 04/19/17 11:22 04/19/17 11:22 04/19/17 11:22 General appearance: Present: A&O X 1, no acute distress. Absent: answers questions appropriately - Respiratory Respiratory exam: Present: CTAB (anterolaterally). Absent: accessory muscle use , rales, rhonchi, wheezes - Cardiovascular Cardiovascular exam: Present: RRR, +S1, +S2. Absent: diastolic murmur, gallop, rubs, systolic murmur - GI/Abdominal GI/Abdominal exam: Present: normal bowel sounds, soft (obese), no peritoneal signs. Absent: distended, tenderness - Extremities Exam Extremities exam: Present: pedal edema, warm, radial pulses palpable and symmetrical. Absent: calf tenderness, cyanotic - Neurological Exam Neurological exam: Present: altered, no focal deficits. Absent: pronater drift , facial droop, speech deficit - Skin Skin exam: Present: dry, excoriation (fungal dermatitis in abdominal and groin folds), intact Internal Medicine: Result - Labs CBC & Chem 7: 04/19/17 05:00 04/19/17 05:27 Labs: Short CBC 04/19/17 Range/Units 05:00 WBC 18.5 H (4.3-11.1) K/mcL Hgb 11.5 L (12.9-16.9) g/dL Hct 34.8 L (37.5-50.1) % Plt Count 166 (140-400) K/mcL Neutrophils # 15.5 H (1.6-8.9) K/mcL BMP 04/19/17 05:27 Sodium 138 Potassium 4.1 Chloride 108 Carbon Dioxide 23 BUN 17 Creatinine 0.89 Glucose 138 H Calcium 8.6 - ABG Interpretation ABG results: PT/INR, D-dimer PT 13.1 Seconds (9.4-12.1) H 04/18/17 14:59 - VTE Documentation of Mechanical Device: Graduated compression elastic hosiery Consult Discharge Plan - Plan Referrals: Andreea Hawley CNP [Primary Care Provider] -
--- NOTE | 2017-04-19 13:27 | Electrocardiograph Report ---
[place] [id number] Test Date: 2017-04-18 Pat Name: Kenny Piedra Department: 102 Room: 3B Gender: M Documentation Clerk: : 1950 Requested By: Donal Mosley Order Number: [id number] Reading MD: Casper Portillo Measurements Intervals Ethel Rate: 94 P: WI: 0 QRS: 22 QRSD: 127 T: 8 QT: 364 QTc: 416 Interpretive Statements ATRIAL FIBRILLATION INFERIOR MYOCARDIAL INFARCTION [40+ ms Q WAVE AND/OR ST/T ABNORMALITY IN II/aVF], PROBABLY OLD Electronically Signed On 04-19-2017 13:26:08 EDT by Casper Portillo
[2017-04-19] MEDS: Miconazole w/zinc oxide&karaya 92 APPL/92 GM TUBE TP SCH ×2 (15:07→21:51)
[2017-04-19] MEDS: Cefepime HCl 2,000 MG in D5% in Water 100 ML IVPB SCH (17:05)
[2017-04-19] MEDS: traZODone 50 MG TABLET PO SCH ×2 (21:47)
[2017-04-20 05:31] LABS: Basophils # 0.1 K/mcL (0.0-0.2); Basophils % 0.7 %; Eosinophils # 0.2 K/mcL (0.0-0.6); Eosinophils % 2.3 %; Hematocrit 34.4 % (37.5-50.1); Hemoglobin 11.1 g/dL (12.9-16.9); Immature Granulocytes % 1.1 % (0-4); Lymphocytes % 10.1 %; Mean Corpuscular HGB Conc 32.3 g/dL (31.6-35.5); Mean Corpuscular Hemoglobin 29.1 pg (28.0-33.3); Mean Corpuscular Volume 90.1 fL (83.0-100.0); Mean Platelet Volume 8.9 fL (9.4-12.4); Monocytes # 0.6 K/mcL (0.0-1.3); Platelet Count 155 K/mcL (140-400); Red Blood Count 3.82 M/mcL (4.19-5.50); Red Cell Distribution Width 13.8 % (11.5-14.5); Segmented Neutrophils % 77.8 %
[2017-04-20 05:45] LABS: Lymphocytes # 0.8 K/mcL (0.6-4.6); Neutrophils # 5.8 K/mcL (1.6-8.9)
[2017-04-20 05:53] LABS: BUN/Creatinine Ratio 20 (6-26); Blood Urea Nitrogen 21 mg/dL (8-26); Carbon Dioxide 22 mEq/L (19-29); Chloride 108 mEq/L (98-109); Glucose 95 mg/dL (70-99); Osmolality,Calculated 289 (280-300); Potassium 3.6 mEq/L (3.5-4.5); Sodium 138 mEq/L (136-145); eGFR For African Americans > 60 (> 60); eGFR For Non-African Americans > 60 (> 60)
[2017-04-20] MEDS: Cefepime HCl 2,000 MG in D5% in Water 100 ML IVPB SCH ×2 (06:52→17:35)
[2017-04-20] MEDS: clonazePAM 1 MG TABLET PO SCH ×4 (09:07→21:23)
[2017-04-20] MEDS: Insulin LISPRO 300 UNITS/3 ML VIAL SQ SCH ×4 (09:09→21:22)
[2017-04-20] MEDS: Gabapentin 300 MG CAPSULE PO SCH ×2 (09:09→21:23)
[2017-04-20] MEDS: hydrOXYzine pamoate 25 MG CAPSULE PO SCH ×2 (09:10→21:23)
[2017-04-20] MEDS: ALISKIREN 150 MG PO SCH (09:54)
[2017-04-20] MEDS: *HR* Digoxin 0.25 MG TABLET PO SCH (09:54)
[2017-04-20] MEDS: Miconazole w/zinc oxide&karaya 92 APPL/92 GM TUBE TP SCH ×2 (09:54→21:39)
[2017-04-20] MEDS: Nystatin POWDER 30 GM BOTTLE TP SCH ×2 (09:54→21:39)
[2017-04-20] MEDS: Fenofibrate 54 MG TABLET PO SCH (09:54)
[2017-04-20] MEDS: *HR* Rivaroxaban 10 MG TABLET PO SCH (09:55)
--- NOTE | 2017-04-20 17:17 | Internal Med Progress Note ---
Date of Encounter: 04/20/17 Time of Encounter: 09:05 - Assessment and plan (1) Sepsis Current Visit: Yes Status: Resolved Assessment and plan: Leukocytosis has resolved, he is afebrile, no tachycardia or tachypnea. Patient is normotensive. Lactic is within normal limits. We will continue to monitor patient condition, vital signs, and labs. Qualifiers: Sepsis type: sepsis due to unspecified organism Qualified Code(s): A41.9 - Sepsis, unspecified organism (2) UTI (urinary tract infection) Current Visit: Yes Status: Acute Assessment and plan: Final urine culture positive for Escherichia coli, patient is currently being treated with cefepime 2 g twice a day. Due to patient's condition this morning , will wait to de-escalate after seeing patient in the morning. Qualifiers: Urinary tract infection type: acute cystitis Hematuria presence: without hematuria Qualified Code(s): N30.00 - Acute cystitis without hematuria (3) Encephalopathy due to infection Current Visit: Yes Status: Resolved (4) Type 2 diabetes mellitus Current Visit: Yes Status: Chronic Assessment and plan: Continue Accucheck before meals at bedtime monitoring with SSI as needed. Diabetic diet as tolerated. A1c was 6.3 one month ago. Qualifiers: Diabetes mellitus complication status: with unspecified complications Diabetes mellitus oil heaterman insulin use: without oil heaterman use Qualified Code( s): E11.8 - Type 2 diabetes mellitus with unspecified complications (5) Afib Current Visit: Yes Status: Chronic Assessment and plan: Rate controlled. Continue Xarelto. Continue other home medications. Qualifiers: Atrial fibrillation type: chronic Qualified Code(s): I48.2 - Chronic atrial fibrillation (6) DVT prophylaxis Current Visit: Yes Status: Acute Assessment and plan: Continue home anticoagulation. (7) Fungal rash of trunk Current Visit: Yes Status: Acute Assessment and plan: Patient with what is most likely yeast infection under pannus and breasts. Continue miconazole. - Time Spent With Patient less than 15 minutes - Subjective Interval history: Patient was seen and assessed at bedside at 0905 AM. Patient was extremely drowsy, difficult to arouse, rales briefly to verbal stimuli. Primary RN relates that this is how patient has been and has not received any narcotic medication. Any sedating medications have been held, and at this time, 1715, primary nurse reports that patient is much more alert and oriented and awake than he was this morning. This morning patient was alert to name and place, was unable to stay time or who the president was. He denied any pain. Physical exam was unremarkable. He denied headache or blurred vision, no abdominal pain, no nausea or headache. - Constitutional Vitals: Temp Pulse Resp BP Pulse Ox 97.9 F 75 16 122/65 97 04/20/17 14:58 04/20/17 14:58 04/20/17 14:58 04/20/17 14:58 04/20/17 14:58 General appearance: Present: cooperative, A&O X 2, pleasant, no acute distress. Absent: answers questions appropriately - Head Head exam: Present: atraumatic, normal inspection, normocephalic - Eye Eye exam: Present: normal appearance, conjuntiva pink, sclera anicteric - Neck Neck exam general surgery: Present: supple, trachea midline. Absent: lymphadenopathy, tenderness - Respiratory Respiratory exam: Present: decreased breath sounds, CTAB. Absent: accessory muscle use, rales, respiratory distress, rhonchi, wheezes - Cardiovascular Cardiovascular exam: Present: RRR, +S1, +S2. Absent: diastolic murmur, gallop, rubs, systolic murmur - GI/Abdominal GI/Abdominal exam: Present: normal bowel sounds, soft, no peritoneal signs. Absent: distended, hepatomegaly, tenderness - Extremities Exam Extremities exam: Present: normal capillary refill, warm, radial pulses palpable and symmetrical. Absent: calf tenderness, cyanotic, pedal edema, tenderness - Neurological Exam Neurological exam: Present: alert, oriented X3, no focal deficits. Absent: facial droop, speech deficit - Skin Skin exam: Present: dry, intact, normal color, warm. Absent: rash Internal Medicine: Result - Labs CBC & Chem 7: 04/20/17 04:06 04/20/17 04:06 Labs: Short CBC 04/20/17 Range/Units 04:06 WBC 7.4 D (4.3-11.1) K/mcL Hgb 11.1 L (12.9-16.9) g/dL Hct 34.4 L (37.5-50.1) % Plt Count 155 (140-400) K/mcL Neutrophils # 5.8 (1.6-8.9) K/mcL BMP 04/20/17 04:06 Sodium 138 Potassium 3.6 Chloride 108 Carbon Dioxide 22 BUN 21 Creatinine 1.04 Glucose 95 Calcium 9.0 - ABG Interpretation ABG results: PT/INR, D-dimer PT 13.1 Seconds (9.4-12.1) H 04/18/17 14:59 - VTE Documentation of Mechanical Device: Graduated compression elastic hosiery Consult Discharge Plan - Plan Referrals: Adnreea Hawley, [employer] [Primary Care Provider] -
[2017-04-20] MEDS: traZODone 50 MG TABLET PO SCH (21:24)
[2017-04-21] MEDS: Cefepime HCl 2,000 MG in D5% in Water 100 ML IVPB SCH (06:18)
[2017-04-21] MEDS: Miconazole w/zinc oxide&karaya 92 APPL/92 GM TUBE TP SCH (08:47)
[2017-04-21] MEDS: Nystatin POWDER 30 GM BOTTLE TP SCH (08:47)
[2017-04-21] MEDS: Insulin LISPRO 300 UNITS/3 ML VIAL SQ SCH ×2 (08:48→12:05)
[2017-04-21] MEDS: hydrOXYzine pamoate 25 MG CAPSULE PO SCH (08:51)
[2017-04-21] MEDS: clonazePAM 1 MG TABLET PO SCH ×2 (08:51→12:06)
[2017-04-21] MEDS: *HR* Digoxin 0.25 MG TABLET PO SCH (08:51)
[2017-04-21] MEDS: Fenofibrate 54 MG TABLET PO SCH (08:52)
[2017-04-21] MEDS: Gabapentin 300 MG CAPSULE PO SCH (08:52)
[2017-04-21] MEDS: ALISKIREN 150 MG PO SCH (08:52)
[2017-04-21] MEDS: *HR* Rivaroxaban 10 MG TABLET PO SCH (08:53)
[2017-04-21 11:28] VITALS: BP 100/58
--- NOTE | 2017-04-21 12:06 | Discharge Summary ---
Date of Encounter: 04/21/17 Time of Encounter: 09:25 - Discharge Diagnosis (1) Sepsis Priority: Primary Status: Resolved Comments: REsolved. Pt is afebrile, no tachycardia or tachypnea, and is normotensive. WBC 7.4 yesterday. Pt is alert and awake and states that he feels significantly better. Qualifiers: Sepsis type: sepsis due to unspecified organism Qualified Code(s): A41.9 - Sepsis, unspecified organism (2) UTI (urinary tract infection) Priority: Secondary Status: Acute Comments: Urine culture shows E. coli and is susceptible to Bactrim, pt will be sent home with rx. Qualifiers: Urinary tract infection type: acute cystitis Hematuria presence: without hematuria Qualified Code(s): N30.00 - Acute cystitis without hematuria (3) Encephalopathy due to infection Priority: Secondary Status: Resolved Comments: Pt has returned to baseline and is alert, conversive, and oriented. Pt states that he has returned to his baseline. (4) Type 2 diabetes mellitus Priority: Secondary Status: Chronic Comments: A1c 6.3% in March,. Continue home medications and accucheck regimen. Qualifiers: Diabetes mellitus complication status: with unspecified complications Diabetes mellitus terminal block assembler insulin use: without terminal block assembler use Qualified Code( s): E11.8 - Type 2 diabetes mellitus with unspecified complications (5) Afib Priority: Secondary Status: Chronic Comments: Rate controlled, continue medications and Xarelto. Qualifiers: Atrial fibrillation type: chronic Qualified Code(s): I48.2 - Chronic atrial fibrillation (6) DVT prophylaxis Priority: Secondary Status: Acute Comments: Continue Xarelto. (7) Fungal rash of trunk Priority: Secondary Status: Chronic Comments: Continue topical medications at home. (8) Morbid obesity Priority: Secondary Status: Chronic Comments: Chronic. Lifestyle changes. - Discharge Medications Prescriptions: Miconazole w/zinc oxide&karaya [Antifungal Extra Thick] 1 appl TP BID #1 tube Nystatin POWDER [Nystop] 1 appl TP BID #1 bottle Sulfamethoxazole/Trimeth DS [Bactrim DS] 1 each PO BID #14 tablet Home Medications: Atorvastatin [Lipitor] 20 mg PO HS 04/30/16 [History] BuPROPion [Wellbutrin] 150 mg PO HS 04/30/16 [History] Digoxin [Lanoxin] 250 mcg PO DAILY 04/30/16 [History] Gabapentin [Neurontin] 600 mg PO BID 04/30/16 [History] Rivaroxaban [Xarelto] 20 mg PO DAILY 04/30/16 [History] clonazePAM [Klonopin] 2 mg PO QID 04/30/16 [History] Aliskiren [Tekturna] 150 mg PO DAILY 04/18/17 [History] Etodolac [Lodine] 400 mg PO BID 04/18/17 [History] Fenofibrate 145 mg PO DAILY 04/18/17 [History] Furosemide [Lasix] 40 mg PO DAILY 04/18/17 [History] hydrOXYzine HCl [Hydroxyzine HCl] 50 mg PO BID 04/18/17 [History] traZODone [TraZODone] 50 mg PO HS 04/18/17 [History] BuPROPion SR (12 HR) [Wellbutrin SR] 300 mg PO QAM 04/19/17 [History] Miconazole w/zinc oxide&karaya [Antifungal Extra Thick] 1 appl TP BID #1 tube [Rx] Nystatin POWDER [Nystop] 1 appl TP BID #1 bottle 04/21/17 [Rx] Sulfamethoxazole/Trimeth DS [Bactrim DS] 1 each PO BID #14 tablet 04/21/17 [Rx] Allergies/Adverse Reactions: 3 Allergy/AdvReac Type Severity Reaction Status Date / Time No Known Allergies Allergy Unverified 01/01/16 08:26 Date of admission: 04/18/17 16:49 Primary care physician: Andreea Hawley CNP Consults: 04/18/17 17:46 Consult to Wound Care [CONS] Routine Reason for Consult: sacral pressure and fungal infection in panus Call Completed: No Discharging clinician: Marcia Awan Anticipated date of discharge: 04/21/17 - Patient Status Disposition: Home, Self-Care Condition: Good Functional capacity at discharge: independent ambulation Overall status at discharge: patient is back to baseline - Discharge Instructions Follow Up With: Andreea Hawley CNP [Primary Care Provider] - 04/28/17 10:35 am Additional Instructions: Take your medications as directed. Take your antibiotic until it is gone. See your PCP in the next 7-10 days for a follow up visit. Return to the ER as needed for any other problems or concerns. Make sure that you are drinking plenty of water daily. Return to your normal activities as tolerated. Resume your other home medications. - Diet and Activity Activity: increase activity as tolerated Diet: diabetic diet, low fat, low cholesterol Hospital course: Mr. Piedra is a 67 year old male with past medical history of tonsillar cancer, diabetes, morbid obesity, physical deconditioning, failure to thrive, paroxysmal A. fib who presented to the emergency department with acute mental status change. Patient's reports that when she returned home on Wednesday, patient was unable to respond to questions and seemed "out of it." Per admission note, states that he spends most of his time in the recliner and sleeps in it at night is not very active. Patient remained the same as yesterday during assessment, he was hard to arouse, speech seemed slurred, patient will only arouse briefly. We held gabapentin and Klonopin, and patient seemed to have improved by midafternoon. Today, patient was alert and awake, does not remember even seeing me yesterday. He states that he feels better and is anxious to go home. When questioned what patient does at home during the day , he says not much. He denies being employed and states that he just lays around at home. According to primary nurse, patient was also unable to wipe himself and he was on the bedpan. Would recommend physical therapy possibly outpatient for physical deconditioning. Patient was found to have a urinary tract on admission, as well as sepsis, urine was cloudy positive for nitrites, small amount leukocyte esterase, 5-15 white cells, many bacteria. Culture grew Escherichia coli, patient was initially treated with cefepime 2 g every 12 hours. He will be sent home with Bactrim DS, one tablet twice daily for 7 days. Chest x-ray was negative on admission. Head CT was negative for any acute intracranial abnormality, EKG showed rate-controlled A. fib with a rate in the 90s. Patient was admitted with leukocytosis, white count 19, 7.4 on discharge. Patient was hyperglycemic during admission, A1c was 6.3 about a month ago. Patient with morbid obesity, we did discuss lifestyle changes. Patient is afebrile, no tachycardia or tachypnea, he is normotensive and is not requiring supplemental oxygen. Patient is stable and ready for discharge. - Time Spent with Patient Total time spent providing and/or coordinating discharge services: Less than 30 minutes - Constitutional Vitals: Temp Pulse Resp BP Pulse Ox 97.5 F L 61 18 100/58 95 04/21/17 11:24 04/21/17 11:24 04/21/17 11:24 04/21/17 11:24 04/21/17 11:24 General appearance: Present: cooperative, A&O X 3, morbidly obese, pleasant, no acute distress, answers questions appropriately - Head Head exam: Present: atraumatic, normal inspection, normocephalic - Eye Eye exam: Present: normal appearance, conjuntiva pink, sclera anicteric - Neck Neck exam general surgery: Present: supple, trachea midline. Absent: lymphadenopathy, tenderness - Respiratory Respiratory exam: Present: CTAB. Absent: accessory muscle use, chest wall tenderness, rales, respiratory distress, rhonchi, wheezes - Cardiovascular Cardiovascular exam: Present: RRR, +S1, +S2. Absent: diastolic murmur, gallop, rubs, systolic murmur - GI/Abdominal GI/Abdominal exam: Present: normal bowel sounds, soft. Absent: distended, hepatomegaly, tenderness - Extremities Exam Extremities exam: Present: normal capillary refill, warm, radial pulses palpable and symmetrical. Absent: calf tenderness, cyanotic, pedal edema, tenderness - Neurological Exam Neurological exam: Present: alert, oriented X3, no focal deficits, strengths equal and symetr throughout. Absent: facial droop, speech deficit - Skin Skin exam: Present: dry, intact, normal color, warm. Absent: rash - VTE Documentation of Mechanical Device: Graduated compression elastic hosiery
== END 2017-04-21 15:01 | disposition home or self-care (01) | DRG 871 ==
LOC: 3BNU 14:28 → EMEROO 14:28 → SUATTDRO 16:49 → 3BNU 16:53
PROVIDERS: ADMIT Internal Medicine Hematology & Oncology; ATTEND Internal Medicine

== ENCOUNTER 2019-04-24 14:26 | Inpatient (IN) ==
[2019-04-24] MEDS ORDERED: Isovue-370 500 ML BOTTLE IVP ONE (14:32)
[2019-04-24 15:03] LABS: Basophils % 0.2 %; Hematocrit 39.3 % (37.5-50.1); Hemoglobin 12.7 g/dL (12.9-16.9); Immature Granulocytes % 0.8 % (0-4); Mean Corpuscular HGB Conc 32.3 g/dL (31.6-35.5); Mean Corpuscular Hemoglobin 28.7 pg (28.0-33.3); Mean Corpuscular Volume 88.7 fL (83.0-100.0); Mean Platelet Volume 8.9 fL (9.4-12.4); Monocytes % 6.2 %; Neutrophils # 14.1 K/mcL (1.6-8.9); Platelet Count 290 K/mcL (140-400); Red Blood Count 4.43 M/mcL (4.19-5.50); Red Cell Distribution Width 14.2 % (11.5-14.5); Segmented Neutrophils % 86.8 %; White Blood Count 16.2 K/mcL (4.3-11.1)
[2019-04-24 15:12] LABS: INR 1.4
[2019-04-24 15:14] LABS: Activated Partial Thrombo Time 33.7 Seconds (26.0-36.0)
[2019-04-24] MEDS ORDERED: Piperacillin/Tazobactam 3.375 GM in Water for inj. (sterile) 20 ML IVP ONE (15:23)
[2019-04-24] MEDS ORDERED: 0.9 % Sodium Chloride 1,000 ML IVC ONE (15:23)
[2019-04-24 15:24] LABS: Alanine Aminotransferase 14 Units/L (7-52); Alkaline Phosphatase 38 Units/L (34-104); Aspartate Amino Transferase 12 Units/L (13-39); BUN/Creatinine Ratio 18 (6-26); Bilirubin,Direct 0.1 mg/dL (0.0-0.2); Bilirubin,Indirect 0.5 mg/dL (0.0-1.2); Bilirubin,Total 0.6 mg/dL (0.3-1.0); Blood Urea Nitrogen 17 mg/dL (8-23); Calcium 9.5 mg/dL (8.6-10.3); Carbon Dioxide 24 mEq/L (23-29); Chloride 100 mEq/L (98-107); Ethanol < 10 mg/dL (Less than 10); Globulin 4.2 g/dL (2.4-3.5); Glucose 162 mg/dL (70-105); Osmolality,Calculated 281 (280-300); Potassium 3.9 mEq/L (3.5-5.1); Sodium 133 mEq/L (136-145); Total Protein 8.2 g/dL (6.4-8.9); Troponin I < 0.03 ng/mL (< 0.04); eGFR For African Americans > 60 (> 60); eGFR For Non-African Americans > 60 (> 60)
[2019-04-24] MEDS ORDERED: Ampicillin/Sulbactam 3,000 MG in 0.9 % Sodium Chloride Mini Bag 100 ML IVPB ONE (15:27)
[2019-04-24 15:37] LABS: Thyroid Stimulating Hormone 0.117 mcIU/mL (0.340-5.600)
[2019-04-24] MEDS ORDERED: Aspirin 325 MG TABLET PO ONE (15:37)
[2019-04-24 15:56] LABS: Magnesium 1.3 mg/dL (1.6-2.6); Phosphorous 2.7 mg/dL (2.7-4.5)
[2019-04-24] MEDS ORDERED: Ondansetron 4 MG/2 ML VIAL IVP ONE (16:19)
[2019-04-24] MEDS ORDERED: Ondansetron 4 MG/2 ML VIAL ONE (16:20)
[2019-04-24 17:55] LABS: Bilirubin,Urine Negative (Negative); Blood,Urine Negative (Negative); Clarity,Urine Clear (Clear); Color,Urine Yellow (Yellow); Glucose,Urine (UA) Normal (Normal); Ketones,Urine Negative (Negative); Leukocyte Esterase,Urine Negative (Negative); Nitrite,Urine Negative (Negative); Protein,Urine 100 mg/dL (Neg-Trace); Specific Gravity,Urine > 1.030 (1.010-1.025)
[2019-04-24 17:58] LABS: Bacteria,Urine None Seen per hpf (None-Few); Hyaline Casts,Urine None Seen per lpf (None-Few); RBC,Urine 0-3 per hpf (0-3); Squamous Epithelial Cell,Urine Many per lpf (None-Few); WBC,Urine 0-3 per hpf (0-3)
[2019-04-24 18:15] LABS: Amphetamine Screen,Urine Negative ng/mL (Cutoff=1000); Barbiturate Screen,Urine Negative ng/mL (Cutoff=200); Benzodiazepines Screen,Urine Negative ng/mL (Cutoff=200); Cannabinoid Screen,Urine Negative ng/mL (Cutoff = 50); Cocaine Screen,Urine Negative ng/mL (Cutoff= 300); Opiate Screen,Urine Negative ng/mL (Cutoff=300); Phencyclidine Screen,Urine Negative ng/mL (Cutoff=25)
[2019-04-24] MEDS ORDERED: *HR* LORazepam 2 MG/ML VIAL IVP ONE (19:24)
[2019-04-24 20:00] LABS: Triiodothyronine (T3) Total 1.53 ng/mL (0.87-1.78)
[2019-04-24] MEDS ORDERED: Ondansetron 4 MG/2 ML VIAL IVP PRN (20:24)
[2019-04-24] MEDS ORDERED: Naloxone 0.4 MG/ML INJ IVP PRN (20:24)
[2019-04-24] MEDS ORDERED: *HR* Dextrose 50 % in Water (Syg) 50 ML SYRINGE IVP PRN (20:29)
[2019-04-24] MEDS ORDERED: D5% in Water 1,000 ML IVC PRN (20:29)
[2019-04-24] MEDS ORDERED: Dextrose Gel 15 GM/37.5 ML TUBE PO PRN ×2 (20:29)
[2019-04-24] MEDS ORDERED: 0.9 % Sodium Chloride 1,000 ML IVC SCH ×2 (20:30→20:44)
[2019-04-24] MEDS ORDERED: 0.9 % Sodium Chloride 500 ML IVC ONE (20:44)
[2019-04-24 21:20] LABS: Troponin I < 0.03 ng/mL (< 0.04)
[2019-04-24 21:29] LABS: C-Reactive Protein 121 mg/L (Less than 10)
[2019-04-24] MEDS ORDERED: Piperacillin/Tazobactam 3.375 GM in 0.9 % Sodium Chloride Mini Bag 100 ML IVPB SCH (22:00)
[2019-04-25] MEDS: Insulin LISPRO 300 UNITS/3 ML VIAL SQ SCH ×5 (03:56→20:58)
[2019-04-25 04:29] LABS: Basophils % 0.3 %; Eosinophils % 0.1 %; Hematocrit 38.5 % (37.5-50.1); Hemoglobin 12.4 g/dL (12.9-16.9); Lymphocytes # 1.4 K/mcL (0.6-4.6); Lymphocytes % 11.7 %; Mean Corpuscular HGB Conc 32.2 g/dL (31.6-35.5); Mean Corpuscular Hemoglobin 28.6 pg (28.0-33.3); Mean Corpuscular Volume 88.7 fL (83.0-100.0); Mean Platelet Volume 8.5 fL (9.4-12.4); Monocytes # 0.9 K/mcL (0.0-1.3); Monocytes % 7.8 %; Neutrophils # 9.4 K/mcL (1.6-8.9); Platelet Count 270 K/mcL (140-400); Red Blood Count 4.34 M/mcL (4.19-5.50); Red Cell Distribution Width 14.2 % (11.5-14.5); Segmented Neutrophils % 79.1 %; White Blood Count 11.9 K/mcL (4.3-11.1)
[2019-04-25 04:35] LABS: INR 1.4; Prothrombin Time 15.5 Seconds (9.4-12.1)
[2019-04-25 04:37] LABS: Activated Partial Thrombo Time 30.7 Seconds (26.0-36.0)
[2019-04-25 04:48] LABS: Alanine Aminotransferase 11 Units/L (7-52); Albumin 3.5 g/dL (3.5-5.7); Albumin/Globulin Ratio 0.9 (1.1-2.2); Alkaline Phosphatase 35 Units/L (34-104); Aspartate Amino Transferase 12 Units/L (13-39); BUN/Creatinine Ratio 16 (6-26); Bilirubin,Total 0.6 mg/dL (0.3-1.0); Blood Urea Nitrogen 13 mg/dL (8-23); Calcium 8.7 mg/dL (8.6-10.3); Carbon Dioxide 22 mEq/L (23-29); Chloride 104 mEq/L (98-107); Globulin 3.7 g/dL (2.4-3.5); Glucose 103 mg/dL (70-105); Magnesium 1.4 mg/dL (1.6-2.6); Osmolality,Calculated 278 (280-300); Phosphorous 3.1 mg/dL (2.7-4.5); Potassium 3.4 mEq/L (3.5-5.1); Sodium 134 mEq/L (136-145); Total Protein 7.2 g/dL (6.4-8.9); eGFR For African Americans > 60 (> 60); eGFR For Non-African Americans > 60 (> 60)
[2019-04-25] MEDS: Piperacillin/Tazobactam 3.375 GM in 0.9 % Sodium Chloride Mini Bag 100 ML IVPB SCH ×3 (07:56→23:37)
[2019-04-25] MEDS: *HR* Rivaroxaban 10 MG TABLET PO SCH (07:57)
[2019-04-25] MEDS ORDERED: Potassium Chloride 40 MEQ, Lidocaine 1% 2 ML in 0.9 % Sodium Chloride 500 ML IVPB ONE (09:49)
[2019-04-25] MEDS: clonazePAM 1 MG TABLET PO PRN (11:36)
[2019-04-26] MEDS: Insulin LISPRO 300 UNITS/3 ML VIAL SQ SCH ×4 (08:26→20:51)
[2019-04-26] MEDS: *HR* Digoxin 0.25 MG TABLET PO SCH (09:06)
[2019-04-26] MEDS: *HR* Rivaroxaban 10 MG TABLET PO SCH (09:06)
[2019-04-26] MEDS: Piperacillin/Tazobactam 3.375 GM in 0.9 % Sodium Chloride Mini Bag 100 ML IVPB SCH ×3 (09:07→23:39)
[2019-04-26 14:46] LABS: Bilirubin,Urine Negative (Negative); Blood,Urine Moderate (Negative); Clarity,Urine Clear (Clear); Color,Urine Yellow (Yellow); Glucose,Urine (UA) Normal (Normal); Ketones,Urine Negative (Negative); Leukocyte Esterase,Urine Negative (Negative); Nitrite,Urine Negative (Negative); Protein,Urine 30 mg/dL (Neg-Trace); Urobilinogen,Urine >=8.0 mg/dL (Normal)
[2019-04-26 14:47] LABS: Bacteria,Urine None Seen per hpf (None-Few); Hyaline Casts,Urine None Seen per lpf (None-Few); RBC,Urine 15-30 per hpf (0-3); Squamous Epithelial Cell,Urine Many per lpf (None-Few); WBC,Urine 0-3 per hpf (0-3)
[2019-04-26] MEDS ORDERED: CLONAZEPAM 1 MG PO SCH (15:00)
[2019-04-26] MEDS: Gabapentin 400 MG CAPSULE PO SCH (18:11)
[2019-04-26] MEDS: clonazePAM 1 MG TABLET PO PRN (18:17)
[2019-04-26] MEDS: traZODone 50 MG TABLET PO SCH (20:54)
[2019-04-27 06:06] LABS: Hematocrit 36.2 % (37.5-50.1); Hemoglobin 11.5 g/dL (12.9-16.9); Mean Corpuscular HGB Conc 31.8 g/dL (31.6-35.5); Mean Corpuscular Hemoglobin 28.7 pg (28.0-33.3); Mean Corpuscular Volume 90.3 fL (83.0-100.0); Platelet Count 285 K/mcL (140-400); Red Blood Count 4.01 M/mcL (4.19-5.50); Red Cell Distribution Width 14.3 % (11.5-14.5); White Blood Count 6.9 K/mcL (4.3-11.1)
[2019-04-27 07:31] LABS: BUN/Creatinine Ratio 16 (6-26); Blood Urea Nitrogen 13 mg/dL (8-23); Calcium 9.1 mg/dL (8.6-10.3); Carbon Dioxide 21 mEq/L (23-29); Chloride 108 mEq/L (98-107); Glucose 97 mg/dL (70-105); Osmolality,Calculated 288 (280-300); Potassium 3.7 mEq/L (3.5-5.1); Sodium 139 mEq/L (136-145); eGFR For African Americans > 60 (> 60); eGFR For Non-African Americans > 60 (> 60)
[2019-04-27 07:33] LABS: Magnesium 1.8 mg/dL (1.6-2.6); Phosphorous 2.9 mg/dL (2.7-4.5)
[2019-04-27] MEDS: Insulin LISPRO 300 UNITS/3 ML VIAL SQ SCH ×4 (08:46→20:56)
[2019-04-27] MEDS: BuPROPion SR (12 HR) 150 MG TABLET PO SCH ×3 (09:16→13:12)
[2019-04-27] MEDS: Gabapentin 300 MG CAPSULE PO SCH (09:41)
[2019-04-27] MEDS: Fenofibrate 54 MG TABLET PO SCH (09:41)
[2019-04-27] MEDS: *HR* Rivaroxaban 10 MG TABLET PO SCH (09:41)
[2019-04-27] MEDS: *HR* Digoxin 0.25 MG TABLET PO SCH (09:41)
[2019-04-27] MEDS: Piperacillin/Tazobactam 3.375 GM in 0.9 % Sodium Chloride Mini Bag 100 ML IVPB SCH ×3 (09:42→23:26)
[2019-04-27] MEDS: Gabapentin 400 MG CAPSULE PO SCH (17:24)
[2019-04-27] MEDS: traZODone 50 MG TABLET PO SCH (20:56)
[2019-04-27] MEDS: clonazePAM 1 MG TABLET PO PRN (23:26)
[2019-04-28] MEDS: Insulin LISPRO 300 UNITS/3 ML VIAL SQ SCH ×2 (07:41→12:41)
[2019-04-28] MEDS: Piperacillin/Tazobactam 3.375 GM in 0.9 % Sodium Chloride Mini Bag 100 ML IVPB SCH ×2 (09:30→09:48)
[2019-04-28 11:19] VITALS: BP 173/88
[2019-04-28] MEDS: *HR* Rivaroxaban 10 MG TABLET PO SCH (11:21)
[2019-04-28] MEDS: BuPROPion SR (12 HR) 150 MG TABLET PO SCH ×2 (11:22)
[2019-04-28] MEDS: Gabapentin 300 MG CAPSULE PO SCH (11:23)
[2019-04-28] MEDS: Fenofibrate 54 MG TABLET PO SCH (11:24)
[2019-04-28] MEDS: *HR* Digoxin 0.25 MG TABLET PO SCH (11:30)
[2019-04-28] MEDS ORDERED: Aminoglycoside Consult 1 EACH MC ONE (15:27)
== END 2019-04-28 15:28 | disposition home or self-care (01) | DRG 871 ==
LOC: 3ANU 14:26 → EMEROOARM 14:26 → SUATTDRO 18:43 → 3ANU 20:24
PROVIDERS: ADMIT Internal Medicine; ATTEND Internal Medicine

== ENCOUNTER 2021-11-01 11:42 | Inpatient (IN) ==
[2021-11-01 13:01] LABS: Bacteria,Urine Few per hpf (None-Few); Bilirubin,Urine Negative (Negative); Blood,Urine Negative (Negative); Clarity,Urine Clear (Clear); Color,Urine Light-Yellow (Yellow); Glucose,Urine (UA) Normal (Normal); Ketones,Urine Negative (Negative); Leukocyte Esterase,Urine Negative (Negative); Mucus,Urine Few per lpf (None-Few); Nitrite,Urine Negative (Negative); Protein,Urine 70 mg/dL (Neg-Trace); RBC,Urine 0-3 per hpf (0-3); Specific Gravity,Urine 1.017 (1.010-1.025); Urobilinogen,Urine Normal (Normal); WBC,Urine 0-3 per hpf (0-3)
[2021-11-01 13:55] LABS: Basophils # 0.1 K/mcL (0.0-0.2); Basophils % 0.5 %; Eosinophils # 0.2 K/mcL (0.0-0.6); Hematocrit 37.2 % (37.5-50.1); Hemoglobin 11.7 g/dL (12.9-16.9); Immature Granulocytes % 0.5 % (0-4); Lymphocytes # 1.3 K/mcL (0.6-4.6); Lymphocytes % 12.2 %; Mean Corpuscular HGB Conc 31.5 g/dL (31.6-35.5); Mean Corpuscular Hemoglobin 26.7 pg (28.0-33.3); Mean Corpuscular Volume 84.9 fL (83.0-100.0); Mean Platelet Volume 9.2 fL (9.4-12.4); Monocytes # 1.1 K/mcL (0.0-1.3); Monocytes % 9.5 %; Neutrophils # 8.3 K/mcL (1.6-8.9); Platelet Count 277 K/mcL (140-400); Red Blood Count 4.38 M/mcL (4.19-5.50); Red Cell Distribution Width 15.8 % (11.5-14.5); Segmented Neutrophils % 75.3 %
[2021-11-01 14:04] LABS: Prothrombin Time 32.7 Seconds (9.4-12.1)
[2021-11-01 14:18] LABS: BUN/Creatinine Ratio 18 (6-26); Blood Urea Nitrogen 20 mg/dL (8-23); Calcium 9.3 mg/dL (8.6-10.3); Carbon Dioxide 24 mEq/L (23-29); Chloride 103 mEq/L (98-107); Glucose 94 mg/dL (70-105); Osmolality,Calculated 288 (280-300); Sodium 138 mEq/L (136-145); Troponin I 0.03 ng/mL (< 0.04); eGFR For African Americans > 60 (> 60); eGFR For Non-African Americans > 60 (> 60)
[2021-11-01 14:30] LABS: Thyroid Stimulating Hormone 5.345 mcIU/mL (0.340-5.600)
[2021-11-01] MEDS: Nystatin POWDER 30 GM BOTTLE TP SCH (14:32)
[2021-11-01] MEDS ORDERED: *HR* Atropine Sulfate 1 MG/10 ML SYRINGE IVP ONE (15:19)
[2021-11-01] MEDS ORDERED: Naloxone 0.4 MG/ML INJ IVP PRN (16:47)
[2021-11-01] MEDS ORDERED: DIGOXIN IMMUNE FAB IVPB ONE (17:55)
[2021-11-01] MEDS ORDERED: SODIUM CHLORIDE 0.9% IVPB ONE (17:55)
[2021-11-01] MEDS ORDERED: *HR* Heparin 5,000 UNIT/ML VIAL SQ SCH (18:00)
[2021-11-01] MEDS ORDERED: *HR* Phytonadione 10 MG/ML AMPUL SQ ONE (19:00)
[2021-11-01] MEDS: 0.9 % Sodium Chloride 1,000 ML IVC SCH (19:59)
[2021-11-01] MEDS ORDERED: *HR* Atropine Sulfate 1 MG/10 ML SYRINGE IVP PRN ×2 (23:08→23:34)
[2021-11-02 00:49] LABS: Prothrombin Time 22.2 Seconds (9.4-12.1)
[2021-11-02] MEDS: Nystatin POWDER 30 GM BOTTLE TP SCH ×4 (00:50→21:12)
[2021-11-02 00:52] LABS: Activated Partial Thrombo Time 34.7 Seconds (26.0-36.0)
[2021-11-02] MEDS: *HR* Atropine Sulfate 1 MG/10 ML SYRINGE IVP PRN ×2 (00:55→02:24)
[2021-11-02] MEDS: Norepinephrine 4 MG/254 ML IV.SOLN IVC SCH ×3 (01:40→21:12)
[2021-11-02] MEDS: 0.9 % Sodium Chloride 1,000 ML IVC SCH (04:20)
[2021-11-02] MEDS ORDERED: Dexmedetomidine HCl 400 MCG/100 ML MLS IVC SCH (04:30)
[2021-11-02 04:48] LABS: Hematocrit 37.2 % (37.5-50.1); Hemoglobin 11.6 g/dL (12.9-16.9); Mean Corpuscular HGB Conc 31.2 g/dL (31.6-35.5); Mean Corpuscular Hemoglobin 26.9 pg (28.0-33.3); Mean Corpuscular Volume 86.3 fL (83.0-100.0); Platelet Count 237 K/mcL (140-400); Red Blood Count 4.31 M/mcL (4.19-5.50); Red Cell Distribution Width 15.7 % (11.5-14.5); White Blood Count 10.7 K/mcL (4.3-11.1)
[2021-11-02 05:08] LABS: Alanine Aminotransferase 8 Units/L (7-52); Albumin 3.5 g/dL (3.5-5.7); Albumin/Globulin Ratio 0.9 (1.1-2.2); Alkaline Phosphatase 54 Units/L (34-104); Aspartate Amino Transferase 18 Units/L (13-39); BUN/Creatinine Ratio 23 (6-26); Bilirubin,Total 0.7 mg/dL (0.3-1.0); Blood Urea Nitrogen 19 mg/dL (8-23); Calcium 8.9 mg/dL (8.6-10.3); Carbon Dioxide 24 mEq/L (23-29); Chloride 106 mEq/L (98-107); Globulin 4.1 g/dL (2.4-3.5); Glucose 120 mg/dL (70-105); Osmolality,Calculated 291 (280-300); Potassium 3.9 mEq/L (3.5-5.1); Sodium 139 mEq/L (136-145); Total Protein 7.6 g/dL (6.4-8.9); Troponin I < 0.03 ng/mL (< 0.04); eGFR For African Americans > 60 (> 60); eGFR For Non-African Americans > 60 (> 60)
[2021-11-02 05:25] LABS: Digoxin > 5.0 ng/mL (0.8-2.0)
[2021-11-02] MEDS ORDERED: SODIUM CHLORIDE 0.9% IVPB ONE (05:27)
[2021-11-02] MEDS ORDERED: DIGOXIN IMMUNE FAB IVPB ONE (05:27)
[2021-11-02 09:53] LABS: Digoxin > 5.0 ng/mL (0.8-2.0); Magnesium 1.5 mg/dL (1.6-2.6)
[2021-11-03 06:29] LABS: Basophils # 0.1 K/mcL (0.0-0.2); Basophils % 0.8 %; Eosinophils # 0.2 K/mcL (0.0-0.6); Eosinophils % 2.7 %; Hematocrit 35.8 % (37.5-50.1); Hemoglobin 11.2 g/dL (12.9-16.9); Immature Granulocytes % 0.5 % (0-4); Lymphocytes % 10.9 %; Mean Corpuscular HGB Conc 31.3 g/dL (31.6-35.5); Mean Corpuscular Hemoglobin 26.7 pg (28.0-33.3); Mean Corpuscular Volume 85.4 fL (83.0-100.0); Monocytes # 0.7 K/mcL (0.0-1.3); Neutrophils # 6.8 K/mcL (1.6-8.9); Platelet Count 234 K/mcL (140-400); Red Blood Count 4.19 M/mcL (4.19-5.50); Red Cell Distribution Width 15.3 % (11.5-14.5); Segmented Neutrophils % 77.1 %; White Blood Count 8.8 K/mcL (4.3-11.1)
[2021-11-03 06:40] LABS: INR 1.6; Prothrombin Time 18.3 Seconds (9.4-12.1)
[2021-11-03 06:55] LABS: VBG Ionized Calcium 1.04 mmol/L (1.15-1.35)
[2021-11-03 07:15] LABS: Alanine Aminotransferase 8 Units/L (7-52); Albumin 3.4 g/dL (3.5-5.7); Albumin/Globulin Ratio 0.9 (1.1-2.2); Alkaline Phosphatase 53 Units/L (34-104); Aspartate Amino Transferase 11 Units/L (13-39); BUN/Creatinine Ratio 17 (6-26); Bilirubin,Total 0.5 mg/dL (0.3-1.0); Blood Urea Nitrogen 10 mg/dL (8-23); Carbon Dioxide 26 mEq/L (23-29); Chloride 104 mEq/L (98-107); Globulin 3.9 g/dL (2.4-3.5); Glucose 113 mg/dL (70-105); Magnesium 1.5 mg/dL (1.6-2.6); Osmolality,Calculated 284 (280-300); Phosphorous 2.8 mg/dL (2.7-4.5); Potassium 3.7 mEq/L (3.5-5.1); Sodium 137 mEq/L (136-145); Total Protein 7.3 g/dL (6.4-8.9); eGFR For African Americans > 60 (> 60); eGFR For Non-African Americans > 60 (> 60)
[2021-11-03] MEDS: Norepinephrine 4 MG/254 ML IV.SOLN IVC SCH (07:25)
[2021-11-03] MEDS ORDERED: Potassium Chloride Elixir 20 MEQ/15 ML UDC PO ONE (08:21)
[2021-11-03] MEDS: Nystatin POWDER 30 GM BOTTLE TP SCH ×3 (08:50→19:48)
[2021-11-03] MEDS ORDERED: Calcium Gluconate 1gm/50mL 1 GM/50 ML BAG IVPB ONE (11:19)
[2021-11-03] MEDS ORDERED: Naloxone 0.4 MG/ML INJ IVP PRN (14:01)
[2021-11-03] MEDS ORDERED: *HR* Atropine Sulfate 1 MG/10 ML SYRINGE IVP PRN (14:01)
[2021-11-03] MEDS: BuPROPion SR (12 HR) 150 MG TABLET PO SCH (15:22)
[2021-11-03] MEDS: clonazePAM 1 MG TABLET PO SCH ×2 (15:22→19:47)
[2021-11-03] MEDS: *HR* Rivaroxaban 10 MG TABLET PO SCH (15:22)
[2021-11-03] MEDS: Acetaminophen 325 MG TABLET PO PRN (16:11)
[2021-11-03] MEDS: Gabapentin 300 MG CAPSULE PO SCH (19:47)
[2021-11-04 08:48] LABS: Basophils # 0.1 K/mcL (0.0-0.2); Basophils % 0.7 %; Eosinophils # 0.4 K/mcL (0.0-0.6); Eosinophils % 4.9 %; Hematocrit 37.6 % (37.5-50.1); Hemoglobin 11.8 g/dL (12.9-16.9); Immature Granulocytes % 0.3 % (0-4); Lymphocytes % 14.1 %; Mean Corpuscular HGB Conc 31.4 g/dL (31.6-35.5); Mean Corpuscular Hemoglobin 26.8 pg (28.0-33.3); Mean Corpuscular Volume 85.3 fL (83.0-100.0); Monocytes # 0.6 K/mcL (0.0-1.3); Monocytes % 8.5 %; Neutrophils # 5.2 K/mcL (1.6-8.9); Platelet Count 250 K/mcL (140-400); Red Blood Count 4.41 M/mcL (4.19-5.50); Red Cell Distribution Width 15.7 % (11.5-14.5); Segmented Neutrophils % 71.5 %; White Blood Count 7.3 K/mcL (4.3-11.1)
[2021-11-04 08:57] LABS: BUN/Creatinine Ratio 12 (6-26); Blood Urea Nitrogen 8 mg/dL (8-23); Calcium 9.4 mg/dL (8.6-10.3); Carbon Dioxide 27 mEq/L (23-29); Chloride 106 mEq/L (98-107); Glucose 113 mg/dL (70-105); Magnesium 1.3 mg/dL (1.6-2.6); Osmolality,Calculated 291 (280-300); Potassium 4.1 mEq/L (3.5-5.1); Sodium 141 mEq/L (136-145); eGFR For African Americans > 60 (> 60); eGFR For Non-African Americans > 60 (> 60)
[2021-11-04] MEDS: Gabapentin 300 MG CAPSULE PO SCH ×2 (09:22→20:29)
[2021-11-04] MEDS: Nystatin POWDER 30 GM BOTTLE TP SCH ×3 (09:22→20:30)
[2021-11-04] MEDS: clonazePAM 1 MG TABLET PO SCH ×2 (09:22→20:29)
[2021-11-04] MEDS: BuPROPion SR (12 HR) 150 MG TABLET PO SCH (09:22)
[2021-11-04] MEDS: *HR* Rivaroxaban 10 MG TABLET PO SCH (09:23)
[2021-11-04] MEDS ORDERED: Potassium Phosphate 44 MEQ in 0.9 % Sodium Chloride 250 ML IVPB ONE (10:19)
[2021-11-04] MEDS: Metoprolol XL (24 HR) Succ 25 MG TAB.ER.24H PO SCH (12:16)
[2021-11-04] MEDS: traZODone 50 MG TABLET PO SCH (20:29)
[2021-11-05 04:12] LABS: Basophils # 0.1 K/mcL (0.0-0.2); Basophils % 0.6 %; Eosinophils # 0.4 K/mcL (0.0-0.6); Hematocrit 38.3 % (37.5-50.1); Hemoglobin 12.1 g/dL (12.9-16.9); Immature Granulocytes % 0.5 % (0-4); Lymphocytes # 1.2 K/mcL (0.6-4.6); Lymphocytes % 14.9 %; Mean Corpuscular HGB Conc 31.6 g/dL (31.6-35.5); Mean Corpuscular Hemoglobin 26.4 pg (28.0-33.3); Mean Corpuscular Volume 83.6 fL (83.0-100.0); Mean Platelet Volume 9.1 fL (9.4-12.4); Monocytes # 0.7 K/mcL (0.0-1.3); Monocytes % 8.7 %; Neutrophils # 5.4 K/mcL (1.6-8.9); Platelet Count 284 K/mcL (140-400); Red Blood Count 4.58 M/mcL (4.19-5.50); Red Cell Distribution Width 15.7 % (11.5-14.5); Segmented Neutrophils % 70.3 %; White Blood Count 7.7 K/mcL (4.3-11.1)
[2021-11-05 04:21] LABS: BUN/Creatinine Ratio 12 (6-26); Blood Urea Nitrogen 8 mg/dL (8-23); Calcium 9.4 mg/dL (8.6-10.3); Carbon Dioxide 25 mEq/L (23-29); Chloride 103 mEq/L (98-107); Glucose 121 mg/dL (70-105); Magnesium 1.3 mg/dL (1.6-2.6); Osmolality,Calculated 286 (280-300); Phosphorous 3.2 mg/dL (2.7-4.5); Potassium 3.7 mEq/L (3.5-5.1); Sodium 138 mEq/L (136-145); eGFR For African Americans > 60 (> 60); eGFR For Non-African Americans > 60 (> 60)
[2021-11-05] MEDS: BuPROPion XL (24 HR) 150 MG TABLET PO SCH (09:09)
[2021-11-05] MEDS: Metoprolol XL (24 HR) Succ 25 MG TAB.ER.24H PO SCH (09:09)
[2021-11-05] MEDS: clonazePAM 1 MG TABLET PO SCH ×2 (09:09→20:13)
[2021-11-05] MEDS: *HR* Rivaroxaban 10 MG TABLET PO SCH (09:09)
[2021-11-05] MEDS: Gabapentin 300 MG CAPSULE PO SCH ×2 (09:09→20:13)
[2021-11-05] MEDS: Acetaminophen 325 MG TABLET PO PRN ×2 (09:09→17:09)
[2021-11-05] MEDS: Nystatin POWDER 30 GM BOTTLE TP SCH ×3 (09:10→22:20)
[2021-11-05] MEDS: amLODIPine 5 MG TABLET PO SCH (12:09)
[2021-11-05] MEDS: traZODone 50 MG TABLET PO SCH (20:13)
[2021-11-06] MEDS: Acetaminophen 325 MG TABLET PO PRN ×2 (04:29→15:46)
[2021-11-06] MEDS ORDERED: Perflutren Lipid Microsphere 1.3 ML in 0.9 % Sodium Chloride 8.7 ML IVP PRN (08:31)
[2021-11-06] MEDS: Metoprolol XL (24 HR) Succ 25 MG TAB.ER.24H PO SCH (08:36)
[2021-11-06] MEDS: clonazePAM 1 MG TABLET PO SCH ×2 (08:37→21:13)
[2021-11-06] MEDS: BuPROPion XL (24 HR) 150 MG TABLET PO SCH (08:37)
[2021-11-06] MEDS: Nystatin POWDER 30 GM BOTTLE TP SCH ×3 (08:37→21:14)
[2021-11-06] MEDS: *HR* Rivaroxaban 10 MG TABLET PO SCH (08:37)
[2021-11-06] MEDS: amLODIPine 5 MG TABLET PO SCH (08:37)
[2021-11-06] MEDS: Gabapentin 300 MG CAPSULE PO SCH ×2 (08:37→21:13)
[2021-11-06] MEDS: traZODone 50 MG TABLET PO SCH (21:13)
[2021-11-07] MEDS: Gabapentin 300 MG CAPSULE PO SCH ×2 (09:10→20:28)
[2021-11-07] MEDS: BuPROPion XL (24 HR) 150 MG TABLET PO SCH (09:10)
[2021-11-07] MEDS: amLODIPine 5 MG TABLET PO SCH (09:10)
[2021-11-07] MEDS: clonazePAM 1 MG TABLET PO SCH ×2 (09:10→20:28)
[2021-11-07] MEDS: *HR* Rivaroxaban 10 MG TABLET PO SCH (09:11)
[2021-11-07] MEDS: Metoprolol XL (24 HR) Succ 25 MG TAB.ER.24H PO SCH (09:11)
[2021-11-07] MEDS: Nystatin POWDER 30 GM BOTTLE TP SCH ×3 (11:45→20:28)
[2021-11-07] MEDS: Acetaminophen 325 MG TABLET PO PRN (14:29)
[2021-11-07] MEDS: traZODone 50 MG TABLET PO SCH (20:29)
[2021-11-08] MEDS: clonazePAM 1 MG TABLET PO SCH ×2 (09:06→20:28)
[2021-11-08] MEDS: amLODIPine 5 MG TABLET PO SCH (09:07)
[2021-11-08] MEDS: Gabapentin 300 MG CAPSULE PO SCH ×2 (09:07→20:29)
[2021-11-08] MEDS: Magnesium Oxide 400 MG TABLET PO SCH ×2 (09:07→20:29)
[2021-11-08] MEDS: BuPROPion XL (24 HR) 150 MG TABLET PO SCH (09:07)
[2021-11-08] MEDS: *HR* Rivaroxaban 10 MG TABLET PO SCH (09:07)
[2021-11-08] MEDS: Metoprolol XL (24 HR) Succ 25 MG TAB.ER.24H PO SCH (09:07)
[2021-11-08] MEDS: Nystatin POWDER 30 GM BOTTLE TP SCH ×3 (09:09→20:29)
[2021-11-08] MEDS: Acetaminophen 325 MG TABLET PO PRN (15:36)
[2021-11-08] MEDS ORDERED: Ketorolac 30 MG/ML VIAL IVP ONE (19:50)
[2021-11-08] MEDS: traZODone 50 MG TABLET PO SCH (20:28)
[2021-11-09] MEDS: Gabapentin 300 MG CAPSULE PO SCH ×2 (08:29→22:17)
[2021-11-09] MEDS: clonazePAM 1 MG TABLET PO SCH ×2 (08:33→22:17)
[2021-11-09] MEDS: Magnesium Oxide 400 MG TABLET PO SCH ×2 (08:33→22:17)
[2021-11-09] MEDS: Metoprolol XL (24 HR) Succ 25 MG TAB.ER.24H PO SCH (08:33)
[2021-11-09] MEDS: amLODIPine 5 MG TABLET PO SCH (08:33)
[2021-11-09] MEDS: BuPROPion XL (24 HR) 150 MG TABLET PO SCH (08:33)
[2021-11-09] MEDS: Acetaminophen 325 MG TABLET PO PRN ×2 (08:33→17:01)
[2021-11-09] MEDS: Nystatin POWDER 30 GM BOTTLE TP SCH ×3 (08:34→22:18)
[2021-11-09] MEDS: *HR* Rivaroxaban 10 MG TABLET PO SCH (17:01)
[2021-11-09] MEDS: traZODone 50 MG TABLET PO SCH (22:17)
[2021-11-10] MEDS: clonazePAM 1 MG TABLET PO SCH ×2 (08:03→20:58)
[2021-11-10] MEDS: Gabapentin 300 MG CAPSULE PO SCH ×2 (08:03→20:58)
[2021-11-10] MEDS: Metoprolol XL (24 HR) Succ 25 MG TAB.ER.24H PO SCH (08:03)
[2021-11-10] MEDS: amLODIPine 5 MG TABLET PO SCH (08:03)
[2021-11-10] MEDS: Magnesium Oxide 400 MG TABLET PO SCH ×2 (08:03→20:58)
[2021-11-10] MEDS: BuPROPion XL (24 HR) 150 MG TABLET PO SCH (08:04)
[2021-11-10] MEDS: Nystatin POWDER 30 GM BOTTLE TP SCH ×3 (08:04→20:58)
[2021-11-10] MEDS: Acetaminophen 325 MG TABLET PO PRN (08:06)
[2021-11-10] MEDS ORDERED: Moderna Covid-19 Vaccine 100MCG/0.5mL IM ONE (16:00)
[2021-11-10] MEDS: *HR* Rivaroxaban 10 MG TABLET PO SCH (16:56)
[2021-11-10] MEDS: traZODone 50 MG TABLET PO SCH (20:57)
[2021-11-11] MEDS: amLODIPine 5 MG TABLET PO SCH (08:13)
[2021-11-11] MEDS: Gabapentin 300 MG CAPSULE PO SCH ×2 (08:13→20:08)
[2021-11-11] MEDS: clonazePAM 1 MG TABLET PO SCH ×2 (08:14→20:08)
[2021-11-11] MEDS: Magnesium Oxide 400 MG TABLET PO SCH ×2 (08:14→20:08)
[2021-11-11] MEDS: Metoprolol XL (24 HR) Succ 25 MG TAB.ER.24H PO SCH (08:14)
[2021-11-11] MEDS: Nystatin POWDER 30 GM BOTTLE TP SCH ×3 (08:14→20:13)
[2021-11-11] MEDS: BuPROPion XL (24 HR) 150 MG TABLET PO SCH (08:14)
[2021-11-11] MEDS ORDERED: Ketorolac 30 MG/ML VIAL IVP ONE (10:23)
[2021-11-11] MEDS: *HR* Rivaroxaban 10 MG TABLET PO SCH (16:51)
[2021-11-11] MEDS: traZODone 50 MG TABLET PO SCH (20:08)
[2021-11-12] MEDS: clonazePAM 1 MG TABLET PO SCH ×2 (09:52→19:38)
[2021-11-12] MEDS: amLODIPine 5 MG TABLET PO SCH (09:52)
[2021-11-12] MEDS: Gabapentin 300 MG CAPSULE PO SCH ×2 (09:52→19:38)
[2021-11-12] MEDS: Magnesium Oxide 400 MG TABLET PO SCH ×2 (09:52→19:38)
[2021-11-12] MEDS: Metoprolol XL (24 HR) Succ 25 MG TAB.ER.24H PO SCH (09:52)
[2021-11-12] MEDS: Nystatin POWDER 30 GM BOTTLE TP SCH ×4 (09:53→19:39)
[2021-11-12] MEDS: BuPROPion XL (24 HR) 150 MG TABLET PO SCH (09:53)
[2021-11-12] MEDS: Acetaminophen 325 MG TABLET PO PRN (13:17)
[2021-11-12] MEDS: *HR* Rivaroxaban 10 MG TABLET PO SCH (15:57)
[2021-11-12] MEDS: *HR* HYDROcodone/Acet 5/325 mg TABLET PO PRN (15:57)
[2021-11-12] MEDS: traZODone 50 MG TABLET PO SCH (19:38)
[2021-11-13 03:44] LABS: Basophils # 0.1 K/mcL (0.0-0.2); Eosinophils # 0.3 K/mcL (0.0-0.6); Eosinophils % 3.8 %; Hematocrit 41.8 % (37.5-50.1); Hemoglobin 13.3 g/dL (12.9-16.9); Immature Granulocytes % 0.7 % (0-4); Lymphocytes # 1.6 K/mcL (0.6-4.6); Lymphocytes % 19.9 %; Mean Corpuscular HGB Conc 31.8 g/dL (31.6-35.5); Mean Corpuscular Hemoglobin 26.9 pg (28.0-33.3); Mean Corpuscular Volume 84.6 fL (83.0-100.0); Mean Platelet Volume 8.9 fL (9.4-12.4); Monocytes # 0.8 K/mcL (0.0-1.3); Monocytes % 10.2 %; Neutrophils # 5.2 K/mcL (1.6-8.9); Platelet Count 325 K/mcL (140-400); Red Blood Count 4.94 M/mcL (4.19-5.50); Red Cell Distribution Width 15.8 % (11.5-14.5); Segmented Neutrophils % 64.4 %; White Blood Count 8.1 K/mcL (4.3-11.1)
[2021-11-13 04:07] LABS: BUN/Creatinine Ratio 28 (6-26); Blood Urea Nitrogen 24 mg/dL (8-23); Calcium 9.7 mg/dL (8.6-10.3); Carbon Dioxide 24 mEq/L (23-29); Chloride 103 mEq/L (98-107); Glucose 112 mg/dL (70-105); Magnesium 1.7 mg/dL (1.6-2.6); Osmolality,Calculated 285 (280-300); Potassium 4.1 mEq/L (3.5-5.1); Sodium 135 mEq/L (136-145); eGFR For African Americans > 60 (> 60); eGFR For Non-African Americans > 60 (> 60)
[2021-11-13] MEDS: amLODIPine 5 MG TABLET PO SCH (09:00)
[2021-11-13] MEDS: Metoprolol XL (24 HR) Succ 25 MG TAB.ER.24H PO SCH (09:00)
[2021-11-13] MEDS: clonazePAM 1 MG TABLET PO SCH ×2 (09:00→20:13)
[2021-11-13] MEDS: Gabapentin 300 MG CAPSULE PO SCH ×2 (09:01→20:13)
[2021-11-13] MEDS: Magnesium Oxide 400 MG TABLET PO SCH ×2 (09:01→20:13)
[2021-11-13] MEDS: BuPROPion XL (24 HR) 150 MG TABLET PO SCH (09:01)
[2021-11-13] MEDS: Nystatin POWDER 30 GM BOTTLE TP SCH ×3 (09:03→20:13)
[2021-11-13] MEDS: *HR* Rivaroxaban 10 MG TABLET PO SCH (16:22)
[2021-11-13] MEDS: traZODone 50 MG TABLET PO SCH (20:13)
[2021-11-14] MEDS: Gabapentin 300 MG CAPSULE PO SCH ×2 (11:13→22:00)
[2021-11-14] MEDS: BuPROPion XL (24 HR) 150 MG TABLET PO SCH (11:13)
[2021-11-14] MEDS: clonazePAM 1 MG TABLET PO SCH ×2 (11:13→22:00)
[2021-11-14] MEDS: Metoprolol XL (24 HR) Succ 25 MG TAB.ER.24H PO SCH (11:13)
[2021-11-14] MEDS: amLODIPine 5 MG TABLET PO SCH (11:13)
[2021-11-14] MEDS: Magnesium Oxide 400 MG TABLET PO SCH ×2 (11:13→21:59)
[2021-11-14] MEDS: *HR* HYDROcodone/Acet 5/325 mg TABLET PO PRN ×2 (11:19→19:20)
[2021-11-14] MEDS: Nystatin POWDER 30 GM BOTTLE TP SCH ×3 (11:29→21:58)
[2021-11-14 13:58] LABS: Basophils # 0.1 K/mcL (0.0-0.2); Basophils % 0.7 %; Eosinophils # 0.2 K/mcL (0.0-0.6); Hematocrit 40.8 % (37.5-50.1); Hemoglobin 12.9 g/dL (12.9-16.9); Immature Granulocytes % 0.4 % (0-4); Lymphocytes # 1.3 K/mcL (0.6-4.6); Lymphocytes % 12.8 %; Mean Corpuscular HGB Conc 31.6 g/dL (31.6-35.5); Mean Corpuscular Hemoglobin 26.9 pg (28.0-33.3); Mean Platelet Volume 8.7 fL (9.4-12.4); Monocytes # 0.6 K/mcL (0.0-1.3); Monocytes % 5.7 %; Neutrophils # 7.8 K/mcL (1.6-8.9); Platelet Count 330 K/mcL (140-400); Red Cell Distribution Width 15.7 % (11.5-14.5); Segmented Neutrophils % 78.4 %
[2021-11-14] MEDS: *HR* Rivaroxaban 10 MG TABLET PO SCH (17:54)
[2021-11-14] MEDS: traZODone 50 MG TABLET PO SCH (22:00)
[2021-11-15 01:56] LABS: Basophils # 0.1 K/mcL (0.0-0.2); Basophils % 1.1 %; Eosinophils # 0.3 K/mcL (0.0-0.6); Eosinophils % 3.4 %; Hematocrit 39.8 % (37.5-50.1); Hemoglobin 12.5 g/dL (12.9-16.9); Immature Granulocytes % 0.6 % (0-4); Lymphocytes # 2.1 K/mcL (0.6-4.6); Lymphocytes % 24.2 %; Mean Corpuscular HGB Conc 31.4 g/dL (31.6-35.5); Mean Corpuscular Hemoglobin 26.7 pg (28.0-33.3); Mean Platelet Volume 8.8 fL (9.4-12.4); Monocytes # 0.8 K/mcL (0.0-1.3); Monocytes % 8.8 %; Neutrophils # 5.3 K/mcL (1.6-8.9); Platelet Count 327 K/mcL (140-400); Red Blood Count 4.68 M/mcL (4.19-5.50); Red Cell Distribution Width 15.7 % (11.5-14.5); Segmented Neutrophils % 61.9 %; White Blood Count 8.5 K/mcL (4.3-11.1)
[2021-11-15 02:08] LABS: BUN/Creatinine Ratio 42 (6-26); Blood Urea Nitrogen 34 mg/dL (8-23); Calcium 9.5 mg/dL (8.6-10.3); Carbon Dioxide 24 mEq/L (23-29); Chloride 102 mEq/L (98-107); Glucose 122 mg/dL (70-105); Osmolality,Calculated 287 (280-300); Potassium 3.8 mEq/L (3.5-5.1); Sodium 134 mEq/L (136-145); eGFR For African Americans > 60 (> 60); eGFR For Non-African Americans > 60 (> 60)
[2021-11-15] MEDS: clonazePAM 1 MG TABLET PO SCH ×2 (09:53→21:17)
[2021-11-15] MEDS: amLODIPine 5 MG TABLET PO SCH (09:53)
[2021-11-15] MEDS: Metoprolol XL (24 HR) Succ 25 MG TAB.ER.24H PO SCH (09:53)
[2021-11-15] MEDS: Magnesium Oxide 400 MG TABLET PO SCH ×2 (09:53→21:17)
[2021-11-15] MEDS: Gabapentin 300 MG CAPSULE PO SCH ×2 (09:53→21:17)
[2021-11-15] MEDS: BuPROPion XL (24 HR) 150 MG TABLET PO SCH (09:53)
[2021-11-15] MEDS: Nystatin POWDER 30 GM BOTTLE TP SCH ×3 (09:55→21:17)
[2021-11-15] MEDS: *HR* Rivaroxaban 10 MG TABLET PO SCH (17:26)
[2021-11-15] MEDS: traZODone 50 MG TABLET PO SCH (21:17)
[2021-11-16 01:45] LABS: Basophils # 0.1 K/mcL (0.0-0.2); Basophils % 0.8 %; Eosinophils # 0.3 K/mcL (0.0-0.6); Eosinophils % 2.7 %; Hematocrit 41.2 % (37.5-50.1); Immature Granulocytes % 0.5 % (0-4); Lymphocytes # 1.8 K/mcL (0.6-4.6); Lymphocytes % 15.5 %; Mean Corpuscular HGB Conc 31.6 g/dL (31.6-35.5); Mean Corpuscular Volume 85.5 fL (83.0-100.0); Monocytes # 0.7 K/mcL (0.0-1.3); Monocytes % 6.3 %; Neutrophils # 8.7 K/mcL (1.6-8.9); Platelet Count 354 K/mcL (140-400); Red Blood Count 4.82 M/mcL (4.19-5.50); Red Cell Distribution Width 15.7 % (11.5-14.5); Segmented Neutrophils % 74.2 %; White Blood Count 11.7 K/mcL (4.3-11.1)
[2021-11-16 02:10] LABS: Alanine Aminotransferase 12 Units/L (7-52); Albumin 3.4 g/dL (3.5-5.7); Albumin/Globulin Ratio 0.8 (1.1-2.2); Alkaline Phosphatase 60 Units/L (34-104); Aspartate Amino Transferase 15 Units/L (13-39); BUN/Creatinine Ratio 43 (6-26); Bilirubin,Total 0.3 mg/dL (0.3-1.0); Blood Urea Nitrogen 32 mg/dL (8-23); C-Reactive Protein 10 mg/L (Less than 10); Calcium 9.5 mg/dL (8.6-10.3); Carbon Dioxide 25 mEq/L (23-29); Chloride 102 mEq/L (98-107); Globulin 4.1 g/dL (2.4-3.5); Glucose 160 mg/dL (70-105); Osmolality,Calculated 292 (280-300); Potassium 3.7 mEq/L (3.5-5.1); Sodium 136 mEq/L (136-145); Total Protein 7.5 g/dL (6.4-8.9); eGFR For African Americans > 60 (> 60); eGFR For Non-African Americans > 60 (> 60)
[2021-11-16] MEDS: Magnesium Oxide 400 MG TABLET PO SCH ×2 (08:56→20:58)
[2021-11-16] MEDS: clonazePAM 1 MG TABLET PO SCH ×2 (08:56→20:59)
[2021-11-16] MEDS: BuPROPion XL (24 HR) 150 MG TABLET PO SCH (08:56)
[2021-11-16] MEDS: Metoprolol XL (24 HR) Succ 25 MG TAB.ER.24H PO SCH (08:57)
[2021-11-16] MEDS: Nystatin POWDER 30 GM BOTTLE TP SCH ×3 (08:57→20:59)
[2021-11-16] MEDS: Gabapentin 300 MG CAPSULE PO SCH ×2 (08:57→20:59)
[2021-11-16] MEDS: polyethylene glycoL 3350 17 GM POWD.PACK PO SCH (16:39)
[2021-11-16] MEDS: *HR* Rivaroxaban 10 MG TABLET PO SCH (16:39)
[2021-11-16] MEDS: traZODone 50 MG TABLET PO SCH (20:59)
[2021-11-17] MEDS ORDERED: 0.9 % Sodium Chloride 500 ML ONE (09:05)
[2021-11-17] MEDS: Gabapentin 300 MG CAPSULE PO SCH ×2 (10:22→20:43)
[2021-11-17] MEDS: BuPROPion XL (24 HR) 150 MG TABLET PO SCH (10:22)
[2021-11-17] MEDS: Metoprolol XL (24 HR) Succ 25 MG TAB.ER.24H PO SCH (10:22)
[2021-11-17] MEDS: clonazePAM 1 MG TABLET PO SCH (10:22)
[2021-11-17] MEDS: Magnesium Oxide 400 MG TABLET PO SCH ×2 (10:22→20:43)
[2021-11-17] MEDS: polyethylene glycoL 3350 17 GM POWD.PACK PO SCH (10:23)
[2021-11-17] MEDS: Nystatin POWDER 30 GM BOTTLE TP SCH ×3 (10:23→21:36)
[2021-11-17 11:13] LABS: Basophils # 0.1 K/mcL (0.0-0.2); Basophils % 0.7 %; Eosinophils # 0.2 K/mcL (0.0-0.6); Eosinophils % 1.6 %; Hematocrit 41.7 % (37.5-50.1); Hemoglobin 13.4 g/dL (12.9-16.9); Immature Granulocytes % 0.4 % (0-4); Lymphocytes % 16.6 %; Mean Corpuscular HGB Conc 32.1 g/dL (31.6-35.5); Mean Corpuscular Hemoglobin 27.1 pg (28.0-33.3); Mean Corpuscular Volume 84.2 fL (83.0-100.0); Mean Platelet Volume 8.9 fL (9.4-12.4); Monocytes # 0.8 K/mcL (0.0-1.3); Monocytes % 6.9 %; Neutrophils # 8.9 K/mcL (1.6-8.9); Platelet Count 351 K/mcL (140-400); Red Blood Count 4.95 M/mcL (4.19-5.50); Red Cell Distribution Width 15.9 % (11.5-14.5); Segmented Neutrophils % 73.8 %
[2021-11-17 11:38] LABS: BUN/Creatinine Ratio 28 (6-26); Blood Urea Nitrogen 21 mg/dL (8-23); Calcium 9.8 mg/dL (8.6-10.3); Carbon Dioxide 24 mEq/L (23-29); Chloride 103 mEq/L (98-107); Glucose 151 mg/dL (70-105); Osmolality,Calculated 286 (280-300); Potassium 3.9 mEq/L (3.5-5.1); Sodium 135 mEq/L (136-145); eGFR For African Americans > 60 (> 60); eGFR For Non-African Americans > 60 (> 60)
[2021-11-17] MEDS: *HR* HYDROcodone/Acet 5/325 mg TABLET PO PRN ×2 (13:53→20:43)
[2021-11-17] MEDS: *HR* Rivaroxaban 10 MG TABLET PO SCH (16:55)
[2021-11-17] MEDS: traZODone 50 MG TABLET PO SCH (20:42)
[2021-11-17] MEDS: *HR* OxyCODONE/APAP 5/325 TABLET PO PRN (22:40)
[2021-11-18 04:33] LABS: Basophils # 0.1 K/mcL (0.0-0.2); Basophils % 0.7 %; Eosinophils # 0.3 K/mcL (0.0-0.6); Eosinophils % 2.9 %; Hematocrit 39.1 % (37.5-50.1); Hemoglobin 12.5 g/dL (12.9-16.9); Immature Granulocytes % 0.6 % (0-4); Lymphocytes # 2.2 K/mcL (0.6-4.6); Lymphocytes % 19.8 %; Mean Corpuscular Volume 84.4 fL (83.0-100.0); Mean Platelet Volume 9.2 fL (9.4-12.4); Monocytes # 0.9 K/mcL (0.0-1.3); Monocytes % 8.1 %; Neutrophils # 7.6 K/mcL (1.6-8.9); Platelet Count 335 K/mcL (140-400); Red Blood Count 4.63 M/mcL (4.19-5.50); Red Cell Distribution Width 15.9 % (11.5-14.5); Segmented Neutrophils % 67.9 %; White Blood Count 11.2 K/mcL (4.3-11.1)
[2021-11-18 06:13] LABS: BUN/Creatinine Ratio 23 (6-26); Blood Urea Nitrogen 18 mg/dL (8-23); Calcium 9.5 mg/dL (8.6-10.3); Carbon Dioxide 26 mEq/L (23-29); Chloride 102 mEq/L (98-107); Glucose 125 mg/dL (70-105); Osmolality,Calculated 281 (280-300); Potassium 3.8 mEq/L (3.5-5.1); Sodium 134 mEq/L (136-145); eGFR For African Americans > 60 (> 60); eGFR For Non-African Americans > 60 (> 60)
[2021-11-18 08:18] LABS: C-Reactive Protein 32 mg/L (Less than 10)
[2021-11-18] MEDS: BuPROPion XL (24 HR) 150 MG TABLET PO SCH (09:07)
[2021-11-18] MEDS: *HR* OxyCODONE/APAP 5/325 TABLET PO PRN (09:07)
[2021-11-18] MEDS: polyethylene glycoL 3350 17 GM POWD.PACK PO SCH (09:07)
[2021-11-18] MEDS: Magnesium Oxide 400 MG TABLET PO SCH ×2 (09:07→19:52)
[2021-11-18] MEDS: Metoprolol XL (24 HR) Succ 25 MG TAB.ER.24H PO SCH (09:07)
[2021-11-18] MEDS: Gabapentin 300 MG CAPSULE PO SCH ×2 (09:07→19:52)
[2021-11-18] MEDS: Nystatin POWDER 30 GM BOTTLE TP SCH ×3 (09:08→19:52)
[2021-11-18] MEDS ORDERED: polyethylene glycoL 3350 17 GM POWD.PACK PO PRN (09:47)
[2021-11-18] MEDS: *HR* Rivaroxaban 10 MG TABLET PO SCH (16:09)
[2021-11-18] MEDS: traZODone 50 MG TABLET PO SCH (19:52)
[2021-11-19 03:36] LABS: Basophils # 0.1 K/mcL (0.0-0.2); Eosinophils # 0.3 K/mcL (0.0-0.6); Eosinophils % 3.3 %; Hematocrit 39.1 % (37.5-50.1); Hemoglobin 12.3 g/dL (12.9-16.9); Immature Granulocytes % 0.5 % (0-4); Lymphocytes % 20.5 %; Mean Corpuscular HGB Conc 31.5 g/dL (31.6-35.5); Mean Corpuscular Hemoglobin 26.2 pg (28.0-33.3); Mean Corpuscular Volume 83.2 fL (83.0-100.0); Mean Platelet Volume 8.9 fL (9.4-12.4); Monocytes # 0.6 K/mcL (0.0-1.3); Neutrophils # 6.7 K/mcL (1.6-8.9); Platelet Count 333 K/mcL (140-400); Red Cell Distribution Width 15.4 % (11.5-14.5); Segmented Neutrophils % 68.7 %; White Blood Count 9.8 K/mcL (4.3-11.1)
[2021-11-19 04:02] LABS: BUN/Creatinine Ratio 26 (6-26); Blood Urea Nitrogen 18 mg/dL (8-23); Calcium 9.7 mg/dL (8.6-10.3); Carbon Dioxide 24 mEq/L (23-29); Chloride 102 mEq/L (98-107); Glucose 102 mg/dL (70-105); Osmolality,Calculated 282 (280-300); Potassium 3.7 mEq/L (3.5-5.1); Sodium 135 mEq/L (136-145); eGFR For African Americans > 60 (> 60); eGFR For Non-African Americans > 60 (> 60)
[2021-11-19] MEDS: Gabapentin 300 MG CAPSULE PO SCH ×2 (09:38→21:22)
[2021-11-19] MEDS: Magnesium Oxide 400 MG TABLET PO SCH ×2 (09:38→21:22)
[2021-11-19] MEDS: Nystatin POWDER 30 GM BOTTLE TP SCH ×3 (09:39→21:24)
[2021-11-19] MEDS: BuPROPion XL (24 HR) 150 MG TABLET PO SCH (09:39)
[2021-11-19] MEDS: Metoprolol XL (24 HR) Succ 25 MG TAB.ER.24H PO SCH (09:39)
[2021-11-19] MEDS: *HR* HYDROcodone/Acet 5/325 mg TABLET PO PRN ×2 (09:39→21:26)
[2021-11-19] MEDS: *HR* Rivaroxaban 10 MG TABLET PO SCH (16:09)
[2021-11-19] MEDS: *HR* OxyCODONE/APAP 5/325 TABLET PO PRN (16:34)
[2021-11-19] MEDS: traZODone 50 MG TABLET PO SCH (21:22)
[2021-11-20] MEDS: BuPROPion XL (24 HR) 150 MG TABLET PO SCH (07:56)
[2021-11-20] MEDS: Gabapentin 300 MG CAPSULE PO SCH ×2 (07:56→21:40)
[2021-11-20] MEDS: *HR* OxyCODONE/APAP 5/325 TABLET PO PRN ×2 (07:56→15:10)
[2021-11-20] MEDS: Magnesium Oxide 400 MG TABLET PO SCH ×2 (07:56→21:40)
[2021-11-20] MEDS: Metoprolol XL (24 HR) Succ 25 MG TAB.ER.24H PO SCH (07:57)
[2021-11-20] MEDS: Nystatin POWDER 30 GM BOTTLE TP SCH ×3 (07:57→21:42)
[2021-11-20] MEDS: *HR* HYDROcodone/Acet 5/325 mg TABLET PO PRN ×2 (12:46→21:40)
[2021-11-20] MEDS: *HR* Rivaroxaban 10 MG TABLET PO SCH (15:57)
[2021-11-20] MEDS: traZODone 50 MG TABLET PO SCH (21:40)
[2021-11-21] MEDS: Magnesium Oxide 400 MG TABLET PO SCH ×2 (07:58→21:37)
[2021-11-21] MEDS: Nystatin POWDER 30 GM BOTTLE TP SCH ×3 (07:58→21:38)
[2021-11-21] MEDS: BuPROPion XL (24 HR) 150 MG TABLET PO SCH (07:58)
[2021-11-21] MEDS: Metoprolol XL (24 HR) Succ 25 MG TAB.ER.24H PO SCH (07:59)
[2021-11-21] MEDS: *HR* OxyCODONE/APAP 5/325 TABLET PO PRN ×2 (07:59→15:08)
[2021-11-21] MEDS: Gabapentin 300 MG CAPSULE PO SCH ×2 (07:59→21:36)
[2021-11-21] MEDS: *HR* HYDROcodone/Acet 5/325 mg TABLET PO PRN ×2 (12:31→21:38)
[2021-11-21] MEDS ORDERED: Ketorolac 30 MG/ML VIAL IVP ONE (14:10)
[2021-11-21] MEDS: traZODone 50 MG TABLET PO SCH (21:37)
[2021-11-22] MEDS: Magnesium Oxide 400 MG TABLET PO SCH ×2 (07:49→21:21)
[2021-11-22] MEDS: Gabapentin 300 MG CAPSULE PO SCH ×2 (07:49→21:20)
[2021-11-22] MEDS: BuPROPion XL (24 HR) 150 MG TABLET PO SCH (07:49)
[2021-11-22] MEDS: *HR* OxyCODONE/APAP 5/325 TABLET PO PRN (07:49)
[2021-11-22] MEDS: Nystatin POWDER 30 GM BOTTLE TP SCH ×3 (07:50→21:22)
[2021-11-22] MEDS: Metoprolol XL (24 HR) Succ 25 MG TAB.ER.24H PO SCH (07:50)
[2021-11-22] MEDS: *HR* Enoxaparin 120 MG/0.8 ML SYRINGE SQ SCH ×2 (10:59→21:23)
[2021-11-22] MEDS: *HR* HYDROcodone/Acet 5/325 mg TABLET PO PRN (21:20)
[2021-11-22] MEDS: traZODone 50 MG TABLET PO SCH (21:22)
[2021-11-23] MEDS: Metoprolol XL (24 HR) Succ 25 MG TAB.ER.24H PO SCH (08:49)
[2021-11-23] MEDS: Gabapentin 300 MG CAPSULE PO SCH ×2 (08:49→20:08)
[2021-11-23] MEDS: Magnesium Oxide 400 MG TABLET PO SCH ×2 (08:49→20:08)
[2021-11-23] MEDS: BuPROPion XL (24 HR) 150 MG TABLET PO SCH (08:49)
[2021-11-23] MEDS: *HR* Enoxaparin 120 MG/0.8 ML SYRINGE SQ SCH ×2 (08:50→20:09)
[2021-11-23] MEDS: Nystatin POWDER 30 GM BOTTLE TP SCH ×3 (08:50→20:11)
[2021-11-23] MEDS: *HR* HYDROcodone/Acet 5/325 mg TABLET PO PRN (12:44)
[2021-11-23] MEDS ORDERED: Ondansetron 4 MG/2 ML VIAL IVP ONE (19:49)
[2021-11-23] MEDS: traZODone 50 MG TABLET PO SCH (20:08)
[2021-11-23] MEDS: *HR* OxyCODONE/APAP 5/325 TABLET PO PRN (21:54)
[2021-11-24 01:20] LABS: Hematocrit 42.4 % (37.5-50.1); Hemoglobin 13.6 g/dL (12.9-16.9); Mean Corpuscular HGB Conc 32.1 g/dL (31.6-35.5); Mean Corpuscular Hemoglobin 26.6 pg (28.0-33.3); Mean Platelet Volume 8.8 fL (9.4-12.4); Platelet Count 301 K/mcL (140-400); Red Blood Count 5.11 M/mcL (4.19-5.50); Red Cell Distribution Width 15.7 % (11.5-14.5); White Blood Count 9.1 K/mcL (4.3-11.1)
[2021-11-24 01:39] LABS: BUN/Creatinine Ratio 22 (6-26); Blood Urea Nitrogen 15 mg/dL (8-23); Calcium 9.5 mg/dL (8.6-10.3); Carbon Dioxide 24 mEq/L (23-29); Chloride 104 mEq/L (98-107); Glucose 92 mg/dL (70-105); Osmolality,Calculated 284 (280-300); Potassium 3.6 mEq/L (3.5-5.1); Sodium 137 mEq/L (136-145); eGFR For African Americans > 60 (> 60); eGFR For Non-African Americans > 60 (> 60)
[2021-11-24 01:40] LABS: INR 1.4
[2021-11-24] MEDS: *HR* HYDROcodone/Acet 5/325 mg TABLET PO PRN (03:57)
[2021-11-24] MEDS: Magnesium Oxide 400 MG TABLET PO SCH (09:36)
[2021-11-24] MEDS: *HR* OxyCODONE/APAP 5/325 TABLET PO PRN (09:36)
[2021-11-24] MEDS: Gabapentin 300 MG CAPSULE PO SCH (09:36)
[2021-11-24] MEDS: Metoprolol XL (24 HR) Succ 25 MG TAB.ER.24H PO SCH (09:36)
[2021-11-24] MEDS: BuPROPion XL (24 HR) 150 MG TABLET PO SCH (09:36)
[2021-11-24] MEDS: Nystatin POWDER 30 GM BOTTLE TP SCH ×2 (09:37→15:08)
[2021-11-24 15:47] VITALS: BP 116/76; PULSE 67; TEMP 97.5; O2SAT 94
== END 2021-11-24 20:30 | disposition short-term general hospital (02) | DRG 308 ==
LOC: EMEROOARM 11:42 → 2NNU 11:42 → ICNU 11-02 04:11 → 2ANU 11-03 14:00 → SUATTDRO 11-03 20:35
PROVIDERS: ADMIT Internal Medicine; ATTEND Internal Medicine
PROC: IRFLUID (2021-11-17 12:00)